=== PATIENT | male | born 1945 | race Caucasian/White ===

== ENCOUNTER → 2018-11-08 | Outpatient (CLI) | payer MEDICARE, BC ==
[~2018-11-08] MED LIST: ALPRAZOLAM 0.50.5 M1 PO; ANTIVERT25 MG PO; ARIXTRA SQ; ASPIRIN325 PO; ASPIRIN81 M2 PO; ATENOLOL 50MG T50 M1 PO; AZOR 5-20 MG T1 EACH PO; CIPRO500 MG PO; CIPROFLOXACIN500 M1 PO; CITRATE OF MAG296 ML PO; COLACE100 MG PO; CYCLOBENZAPRINE10 MG PO; DIPHENHYDRAMINE25 M3 PO; EAC PO; ECONOPRED PLUS10 M1 OP; FEVERALL650 MG RECTAL; FISH OIL 1,001000 M2 PO; FISHOIL PO; FLOMAX0.4 MG PO; FLONASE 0.05%50 MCG NASAL; GLUCOPHAGE500 MG PO; GLYBURIDE 3 MG M3 MG PO; HYDROCODON-ACE1 EAC2 PO; HYDROCODONE-AP1 EAC6 PO; IRON; LEVAQUIN 500 M500 M2 PO; LYRICA 75 MG CA75 MG PO; MAGNES PO; METAMUCIL283 GM PO; MIRALAX17 GM PO; MIRALAX255 GM PO; MOM; MOTION RELIEF25 MG PO; NORCO 5-325 TA1 EACH PO; OXYCONTIN10 M1 PO; OXYIR 5 MG CAPSU5 M1 PO; PERCOCET 10-321 EACH PO; PERCOCET 7.5-31 EACH PO; PROAIR HFA8.5 GM INH; PROPOXY-N/APAP1 TAB PO; REFRESH CLASSI1 EACH OP; STOOL SOFTENER240 MG PO; TYLENOL325 MG PO; VENTOLIN17 GM INH; ZOFRAN ODT4 MG PO; ZOFRAN4 MG PO
[2018-11-08 08:57] LABS: CALCIUM 8.5 mg/dL (8.5-10.1); CREATININE 0.8 mg/dL (0.6-1.3); POTASSIUM 3.9 mmol/L (3.5-5.1)
== END ==
LOC: M.LAB 08:00 → M.CT 09:30
PROVIDERS: Surgery Vascular Surgery
DX: I72.4 Aneurysm of artery of lower extremity (principal); I71.4 Abdominal aortic aneurysm, without rupture; I72.3 Aneurysm of iliac artery; N28.1 Cyst of kidney, acquired; K57.30 Diverticulosis of large intestine without perforation or abscess without bleeding; K40.90 Unilateral inguinal hernia, without obstruction or gangrene, not specified as recurrent; Z79.899 Other long term (current) drug therapy; Z96.653 Presence of artificial knee joint, bilateral

== ENCOUNTER 2019-06-13 21:41 | Inpatient (IN) | payer MEDICARE, BC ==
[~2019-06-13] VITALS: Ht 185.4 cm; Wt 79.4 kg
[2019-06-13 21:43] VITALS: BP 123/76
[2019-06-13] MEDS ORDERED: ATENOLOL 25 MG25 M1 PO (21:49)
[2019-06-13] MEDS ORDERED: BACLOFEN 10MG T10 MG PO (21:50)
[2019-06-13] MEDS ORDERED: DULOXETINE HCL40 MG PO (21:50)
[2019-06-13] MEDS ORDERED: ZESTRIL10 MG PO (21:51)
[2019-06-13] MEDS ORDERED: METFORMIN HCL500 MG PO (21:51)
[2019-06-13] MEDS ORDERED: NEURONTIN300 MG PO (21:51)
[2019-06-13] MEDS ORDERED: FLOMAX0.4 MG PO (21:52)
[2019-06-13] MEDS ORDERED: PERCOCET 5-3251 EACH PO (21:52)
[2019-06-13] MEDS ORDERED: PRAVASTATIN SOD10 MG PO (21:52)
[2019-06-13 22:16] LABS: ABSOLUTE LYMPHOCYTES 0.6 thou/uL (0.8-5.3); ABSOLUTE MONOCYTES 0.5 thou/uL (0.0-1.2); ABSOLUTE NEUTROPHILS 3.9 thou/uL (1.6-8.1); BASOPHILS 0.5 %; EOSINOPHILS 0.1 %; HEMATOCRIT 29.9 % (42.0-52.0); HEMOGLOBIN 9.9 gm/dL (14.0-18.0); LYMPHOCYTES 12.5 %; MCH 27.7 pg (26.0-34.0); MCV 84.2 fL (80.0-100.0); MONOCYTES 9.9 %; MPV 7.4 fl. (7.2-11.1); NUCLEATED RBCS 0 /100WBC; PLATELET COUNT* 273 thou/uL (150-400); RBC 3.56 mil/uL (4.50-6.00)
[2019-06-13 22:22] LABS: CALCIUM 8.2 mg/dL (8.5-10.1); CREATININE 1.1 mg/dL (0.6-1.3); POTASSIUM 4.3 mmol/L (3.5-5.1)
[2019-06-13 22:25] LABS: PROTIME 10.3 Seconds (9.20-11.50)
[2019-06-13 22:33] LABS: ALBUMIN 2.9 g/dL (3.4-5.0); TOTAL BILIRUBIN 0.4 mg/dL (<0.1-1.0); TOTAL PROTEIN 7.1 g/dL (6.4-8.2)
[2019-06-13 22:41] LABS: BE 2.9 mmol/L (-2 to +3); pH 7.377 (7.340-7.450)
[2019-06-13 22:43] LABS: PO2 164.4 mmHg (75.0-100.0)
--- NOTE | 2019-06-13 23:07 | NUR ---
ATTEMPTED TO STRAIGHT CATH FOR UA. UNABLE TO PASS BY PROSTATE. STATES THEY USUALLY HAVE TO HAVE THE DR WITH A SCOPE TO CATH. DR PENN NOTIFIED
[2019-06-14 01:55] LABS: URINE BILIRUBIN NEGATIVE (Negative); URINE BLOOD 1+ (Negative); URINE CLARITY CLEAR; URINE COLOR YELLOW; URINE GLUCOSE-RANDOM NEGATIVE (Negative); URINE KETONES NEGATIVE (Negative); URINE LEUKOCYTES-REFLEX NEGATIVE (Negative); URINE NITRITE-REFLEX NEGATIVE (Negative); URINE PROTEIN NEGATIVE (Negative); URINE SPECIFIC GRAVITY <= 1.005 (1.005-1.030)
[2019-06-14 02:13] LABS: SQUAMOUS 0-3 Few /LPF (0-3); URINE WBC-REFLEX 6-15 Few /HPF (0-5)
[2019-06-14 02:14] LABS: CASTS None Seen /LPF (None Seen); CRYSTALS None Seen /LPF (None Seen); MUCUS 0-3 Light strn/LPF (None Seen); URINE RBC 3-10 Few /HPF (0-2)
[2019-06-14 03:14] VITALS: BP 115/80
[2019-06-14 03:40] VITALS: BP 146/71
--- NOTE | 2019-06-14 06:48 | NUR ---
REPORT RECIEVED FROM ER. PT ADMITTED TO ROOM 222. PT ORIENTED TO ROOM, CALL LIGHT SHOWN, FALL AGREEMENT WENT OVER, PT STATED UNDERSTANDING. PTS HAD ALREADY GONE HOME, PT DOES NOT KNOW HOME MEDICATIONS, MED REC NOT COMPLETED. PULSE ON LLE FOUND WITH DOPPLER. WILL CONTINUE WITH PLAN OF CARE.
[2019-06-14 08:45] VITALS: BP 152/71
[2019-06-14 10:08] LABS: ABSOLUTE LYMPHOCYTES 0.7 thou/uL (0.8-5.3); ABSOLUTE MONOCYTES 0.4 thou/uL (0.0-1.2); ABSOLUTE NEUTROPHILS 2.9 thou/uL (1.6-8.1); BASOPHILS 0.7 %; EOSINOPHILS 0.2 %; HEMATOCRIT 29.6 % (42.0-52.0); HEMOGLOBIN 9.6 gm/dL (14.0-18.0); LYMPHOCYTES 17.5 %; MCH 27.2 pg (26.0-34.0); MCHC 32.4 g/dL (28.0-37.0); MCV 84.1 fL (80.0-100.0); MONOCYTES 11.1 %; MPV 7.2 fl. (7.2-11.1); NUCLEATED RBCS 0 /100WBC; PLATELET COUNT* 231 thou/uL (150-400); POLYS 70.5 %; RBC 3.52 mil/uL (4.50-6.00); RDW-CV 19.7 % (10.5-14.5)
[2019-06-14 10:13] LABS: APTT 25.2 Seconds (25.0-31.3); PROTIME 10.5 Seconds (9.20-11.50)
--- NOTE | 2019-06-14 10:16 | EKG ---
[place] [address] ELECTROCARDIOGRAM REPORT Name: APURVA PINEDA Room: [address] ADM IN M.R.#: [id number] Admission: 06/14/19 Attend Phys: Marcio Story MD Discharge: Date of : 43 Report #: [id number] THIS REPORT FOR: //name// [facility] ED Test Date: 2019-06-13 Test Time: 21:44:40 Pat Name: APURVA PINEDA Department: Room: [facility] Gender: M Test Rider: AJ : 1945 Requested By: Jacinta Murdock Order Number: [id number] MD: You Humphrey Measurements Intervals [place] Rate: 57 P: -16 RI: 164 QRS: -10 QRSD: 141 T: -11 QT: 538 QTc: 524 Interpretive Statements Sinus rhythm Atrial premature complexes Right bundle branch block Compared to ECG 06/20/2016 08:41:38 Atrial premature complex(es) now present Electronically Signed On 06-14-2019 10:16:04 SR RISK MANAGEMENT CONSULTANT by You Humphrey [email or web address] <ELECTRONICALLY SIGNED> By: You Humphrey MD, FACC 06/14/19 1016 2144 2144 You Humphrey MD, [facility] /EPI
[2019-06-14 12:15] VITALS: BP 159/73
[2019-06-14 16:00] VITALS: BP 153/92
[2019-06-14 20:20] VITALS: BP 154/69
[2019-06-15] VITALS: BP 162/91
[2019-06-15 04:00] VITALS: BP 168/89
[2019-06-15 04:40] LABS: HEMATOCRIT 30.8 % (42.0-52.0); HEMOGLOBIN 9.6 gm/dL (14.0-18.0); MCH 26.5 pg (26.0-34.0); MCHC 31.2 g/dL (28.0-37.0); MCV 84.7 fL (80.0-100.0); MPV 7.5 fl. (7.2-11.1); RBC 3.63 mil/uL (4.50-6.00); RDW-CV 20.2 % (10.5-14.5); WBC 4.7 thou/uL (4.0-11.0)
[2019-06-15 04:50] LABS: CALCIUM 7.8 mg/dL (8.5-10.1); CREATININE 0.8 mg/dL (0.6-1.3); POTASSIUM 3.5 mmol/L (3.5-5.1)
--- NOTE | 2019-06-15 07:06 | NUR ---
VSS. SEE MAR. SEE CHARTING. PROGRESSING TOWARDS GOALS. FALL PRECAUITONS IN PLACE. HOURLY ROUNDING FOR SAFETY.
[2019-06-15 08:00] VITALS: BP 167/84
[2019-06-15 12:21] VITALS: BP 140/63
[2019-06-15 16:12] VITALS: BP 152/79
--- NOTE | 2019-06-15 19:43 | NUR ---
ASSUSSMED CARE OF PT APPROX 0730. REASSEMENT COMPLETED CHARTED. MEDICATIONS GIVEN CHARTED. PTS HEPARIN WAS INFUSING AT A HIGHER LEVEL THAN CALCULATED AT THE BEGING OF MY SHIFT APROX 0730. HEPARIN INFUSION WAS STOPED. APTT WAS REDRAWN, RESULTS OF APTT WERE DISCUSSED WITH THE PROVIDER, NEW ORDERS FOR ANTICOAGULATION WERE PLACED FOR THE PT. PT HAD EPISODES OF INCONTIENTNCE, SANDRA CARE GIVEN AND BED PAD CHANGED. SAFTEY PRECAUTIONS UTILIZED, HOURLY ROUNDED FOR PT SAFTEY.
[2019-06-15 20:00] VITALS: BP 156/87
[2019-06-16 00:39] VITALS: BP 146/75
[2019-06-16 04:28] VITALS: BP 167/72
[2019-06-16 04:39] LABS: HEMATOCRIT 29.7 % (42.0-52.0); HEMOGLOBIN 9.5 gm/dL (14.0-18.0); MCH 26.8 pg (26.0-34.0); MCHC 32.1 g/dL (28.0-37.0); MCV 83.7 fL (80.0-100.0); MPV 7.8 fl. (7.2-11.1); RBC 3.54 mil/uL (4.50-6.00); RDW-CV 19.9 % (10.5-14.5); WBC 5.6 thou/uL (4.0-11.0)
[2019-06-16 05:13] LABS: CALCIUM 8.1 mg/dL (8.5-10.1); CREATININE 0.8 mg/dL (0.6-1.3); POTASSIUM 3.3 mmol/L (3.5-5.1)
[2019-06-16 08:00] VITALS: BP 164/85
--- NOTE | 2019-06-16 08:30 | NUR ---
PT SETTING OFF BED ALARM AT BEGINING OF SHIFT. PT TRANSFERED TO ROOM CLOSER TO NURSES STATION. PT STATED HE WAS ANXIOUS AND CONFUSED. XANEX GIVEN PER E-MAR. PT BECOME MORE CONFUSED AND RESTLESS, STATING THAT THE "WORLD IS ENDING IN 48 HOURS" AND THEN WAS SEEING A DOG IN HIS ROOM. PT REPEATEDLY PULLING OFF TELE MONITOR, PT PULLED OUT IV, NEW IV STARTED. NOTIFIED, ORDER FOR SITTER RECIEVED. ASSESSMENT DOCUMENTED. PT AWAKE ALL NIGHT. FALL PRECAUTIONS IN PLACE. WILL CONTINUE WITH PLAN OF CARE.
[2019-06-16 14:03] LABS: CALCIUM 7.9 mg/dL (8.5-10.1); CREATININE 0.9 mg/dL (0.6-1.3); POTASSIUM 3.6 mmol/L (3.5-5.1)
[2019-06-16 14:27] VITALS: BP 156/78
[2019-06-16 17:30] VITALS: BP 165/84
--- NOTE | 2019-06-16 19:01 | NUR ---
RECEIVED REPORT. ASSUMED CARE OF PT AROUND 0730. PT ALERT AND AWAKE, BUT LIKES TO KEEP EYES CLOSED A LOT. OPENS EYES WHEN ASKED. PT ORIENTED TO PERSON AND MONTH/YEAR. DISORIENTED TO PLACE AND SITUATION. WHEN COMMUNICATING WITH PT IT BECOMES CLEAR THAT PT IS VERY CONFUSED - PT WITH HALLUCINATIONS, SEEING DOG ON THE FLOOR AND REACHING OUT TO THE CEILING ASKING "ARE YOU MY AMANDA COMING?". PT WITH EPISODES OF WORD SALAD, CONVERSATION WITH PT IS DIFFICULT. PT DOWN FOR CT HEAD THIS SHIFT, SEE RESULTS. NIH 2. VSS, EXCEPT LOW GRADE TEMP. FITNESS CONSULTANT IN PLACE TRACING SR WITH PAC'S THIS SHIFT. AM ASSESSMENT AND VITALS COMPLETED CHARTED. PT HAS DENIED PAIN THIS SHIFT AND HAD NOT APPEARED TO BE IN ANY DISCOMFORT. SITTER MAINTAINED. IN FOR A TIME THIS AFTERNOON. PT INCONTINENT OF B&B MULTIPLE TIMES - PT CLEANED, BARRIER OINTMENT APPLIED AND LINENS CHANGED NEEDED. MEDS PER EMAR. POTASSIUM REPLACED. PT LUNGS COARSE AND WHEEZY THROUGHOUT, PERSISTENT COUGH. PRN BREATHING TREATMENTS ADDED. PT WITH POOR APPETITE. PT CURRENTLY RESTING IN BED. CALL LIGHT IS WITHIN REACH. HOURLY ROUNDING PERFORMED. FALL PRECAUTIONS IN PLACE.
[2019-06-17] VITALS: BP 121/86
[2019-06-17 04:00] VITALS: BP 137/74
--- NOTE | 2019-06-17 05:31 | NUR ---
PT AWAKE MOST OF SHIFT, TALKING TO THINGS IN THE AIR, PT GRABBING AT THE AIR. SITTER REMAINED AT BESIDE. ASSESSMENT DOCUMENTED. PT REFUSED ALL PO MEDS SO FAR THIS SHIFT, STATING "I AM NEVER TAKING MEDS AGAIN FOR THE REST OF MY LIFE" PT THEN STATED HE WOULD TAKE PILLS, PUT PILLS IN MOUTH THEN SPIT THEM BACK OUT. PT INCONTINENT OF BLADDER THIS SHIFT. FALL PRECAUTIONS IN PLACE. WILL CONTINUE WITH PLAN OF CARE.
--- NOTE | 2019-06-17 06:57 | NUR ---
WENT TO GIVE PATIENT HIS MEDS THIS AM, PT ANSWERING APPROPRIATELY, ORIENTED TO PLACE AND SITUATION. PT AGREEABLE TO TAKE MEDS THEN WENT TO SLEEP. WILL CONTINUE WITH PLAN OF CARE.
[2019-06-17 08:00] VITALS: BP 160/73
--- NOTE | 2019-06-17 09:37 | NUR ---
Pt is A&O. Resides at home with . Pt is wc bound, uses a slide board to transfer, available to assist as needed. Pt also has a cane and walker. Independent. to be up later this afternoon. Following.
[2019-06-17 11:30] VITALS: BP 165/73
[2019-06-17 12:05] LABS: HEMATOCRIT 30.7 % (42.0-52.0); MCH 27.2 pg (26.0-34.0); MCHC 32.7 g/dL (28.0-37.0); MCV 83.2 fL (80.0-100.0); MPV 7.3 fl. (7.2-11.1); RBC 3.69 mil/uL (4.50-6.00); RDW-CV 19.4 % (10.5-14.5); WBC 6.1 thou/uL (4.0-11.0)
[2019-06-17 12:18] LABS: CALCIUM 8.4 mg/dL (8.5-10.1); CREATININE 0.8 mg/dL (0.6-1.3); POTASSIUM 3.9 mmol/L (3.5-5.1)
[2019-06-17 16:24] VITALS: BP 158/74
--- NOTE | 2019-06-17 18:19 | NUR ---
ASSUSSMED CARE OF PT APPROX 0730. REASSESSMENT COMPLETED CHARTED. MEDICATIONS GIVEN CHARTED. AT THE BEGINING OF THIS SHIFT THE PT WAS NONVERBAL AND WOULD NOT OPEN EYES WHEN ASKED TO, PT HAD OCCASIONAL MUMBLES. PTS FAMILY WAS AT BEDSIDE THIS MORNING. AT APPROX 1130 PT WAS ALERT AND ANSWERING QUESTIONS, SOMETIMES NOT APPROPRIATLEY. PT WAS NOT AWARE OF WHERE HE WAS, BUT WAS ABLE TO TELL ME WHO HE WAS AND WHAT YEAR IT IS. PT HAS BEEN AWAKE AND ALERT FOR THE REST OF THIS SHIFT. THE PT WILL LOOK FOR THINGS THAT ARE NOT THERE AND TALK ABOUT THINGS THAT DONT MAKE SENSE. HE IS PLESANT AND IN A GOOD MOOD AND WILL LAUGH AT TIMES. PT HAD A SITTER THIS MORNING THAT WAS NO LONGER NEEDED THIS AFTERNOON. PT IS INCONTINENT OF BOWEL AND BLADDER, SANDRA CARE GIVEN NEEDED. SAFTEY PRECAUTIONS UTILIZED, HOURLY ROUNDING FOR NEEDS AND SAFTEY.
[2019-06-17 19:45] VITALS: BP 148/71
[2019-06-18] VITALS: BP 141/91
[2019-06-18 04:00] VITALS: BP 129/104
--- NOTE | 2019-06-18 07:01 | NUR ---
PT AWAKE MOST OF SHIFT. ASSESSMENT DOCUMENTED. MEDS GIVEN PER E-SEP. IV PATENT, FLUIDS INFUISNG. NO REPORTS OF PAIN. PT DISORIENTED X4 MOST OF SHIFT. SITTER REMAINED AT BEDSIDE. AT MORNING MED PASS THIS AM, PT A&OX4 AND ABLE TO HOLD A CONVERSATION. WILL CONTINUE WITH PLAN OF CARE.
[2019-06-18 08:53] VITALS: BP 153/75
[2019-06-18 11:34] VITALS: BP 139/56
[2019-06-18 16:49] VITALS: BP 143/66
[2019-06-18 20:00] VITALS: BP 134/66
[2019-06-19] VITALS: BP 121/61
--- NOTE | 2019-06-19 04:37 | NUR ---
Pt is aox2, is not currently being monitored on telemetry, respirations are labored, but even. Pt is not in acute distress at this time. Will continue to monitor.
[2019-06-19 07:15] VITALS: BP 171/91
--- NOTE | 2019-06-19 08:00 | NUR ---
PT FOUND IN ROOM TO BE DROWSY,DIAPHORECTIC, AND NOT ABLE TO VERBALLY RESPOND.PT IS ABLE TO FOLLOW COMMANDS AND NIH COMPLETED.RAT CALL CALLED @ 0800.DR. ROGEL PAGED OVERHEAD.PT TAKEN TO STAT CT.CODE STROKE PROTOCOL FOLLOWED.CXR COMPLETED.EKG COMPLETED.PT LEFT RESTING IN BED WITH CALL LIGHT AND FALL PRECAUTIONS IN PLACE.WILL CONTINUE TO MONITOR.
[2019-06-19 09:06] LABS: HEMATOCRIT 28.8 % (42.0-52.0); HEMOGLOBIN 9.4 gm/dL (14.0-18.0); MCH 27.4 pg (26.0-34.0); MCHC 32.7 g/dL (28.0-37.0); MCV 83.9 fL (80.0-100.0); MPV 7.7 fl. (7.2-11.1); RBC 3.44 mil/uL (4.50-6.00); RDW-CV 19.1 % (10.5-14.5); WBC 4.9 thou/uL (4.0-11.0)
[2019-06-19 09:18] LABS: CALCIUM 8.5 mg/dL (8.5-10.1); CREATININE 0.7 mg/dL (0.6-1.3); POTASSIUM 3.5 mmol/L (3.5-5.1)
[2019-06-19 09:22] LABS: ALBUMIN 2.6 g/dL (3.4-5.0); TOTAL BILIRUBIN 0.8 mg/dL (<0.1-1.0); TOTAL PROTEIN 6.9 g/dL (6.4-8.2)
[2019-06-19 12:00] VITALS: BP 144/74
--- NOTE | 2019-06-19 16:31 | NUR ---
PT IS MORE AWAKE THIS AFTERNOON AND RESPONDING TO NURSE.SHREDDER OPERATOR IN PLACE.PT REMAINS ON 2L O2 NC.NO C/O PAIN.IV PATENT WITH IVF INFUSING PER ORDERS.SPEECH THERAPY SAW PT.HOURLY ROUNDING COMPLETED FOR PT SAFETY.CALL LIGHT AND FALL PRECAUTIONS IN PLACE.WILL CONTINUE TO MONITOR FOR DURATION OF SHIFT.
--- NOTE | 2019-06-19 16:59 | EKG ---
[place] [address] ELECTROCARDIOGRAM REPORT Name: APURVA PINEDA RAMIREZ Room: [address] ADM IN M.R.#: [id number] Admission: 06/14/19 Attend Phys: Marcio Story MD Discharge: Date of : 43 Report #: [id number] THIS REPORT FOR: //name// [facility] Test Date: 2019-06-19 Test Time: 08:38:59 Pat Name: APURVA PINEDA Department: Room: [address] Gender: M Paper Twister: : 1945 Requested By: Baldev Haskins Order Number: [id number] Jonathan MD: Helder Borwn Measurements Intervals [place] Rate: 77 P: -47 [place]: 153 QRS: -19 QRSD: 146 T: -28 QT: 441 QTc: 500 Interpretive Statements Sinus rhythm Premature atrial complexes Right bundle branch block Compared to ECG 06/13/2019 21:44:40 significant changes not noted Electronically Signed On 06-19-2019 16:59:07 DIVIDING MACHINE OPERATOR by Helder Brown [email or web address] <ELECTRONICALLY SIGNED> By: Helder Brown MD, [facility] 06/19/19 1659 7 Helder Brown MD, [facility] /EPI
[2019-06-19 20:00] VITALS: BP 134/76
[2019-06-20] VITALS: BP 163/70
[2019-06-20 04:00] VITALS: BP 166/80
--- NOTE | 2019-06-20 06:44 | NUR ---
Pt is aox3, running SA with PVCs on telemetry, respirations are labored, but even. Pt is not in acute distress at this time. Will continue to monitor.
[2019-06-20 08:00] VITALS: BP 156/76
[2019-06-20 11:49] VITALS: BP 132/70
--- NOTE | 2019-06-20 12:34 | NUR ---
Rehab consulted. Pt medically stable to dc to acute rehab pending acceptance. Per rehab Dr, Pt is a good candidate, awaiting therapy evals.
--- NOTE | 2019-06-20 13:58 | NUR ---
Pt discharging to [facility] acute rehab today, awaiting room assignment. Updated Pt's , she is in agreement with POC.
[2019-06-20 16:44] VITALS: BP 132/70
--- NOTE | 2019-06-21 13:36 | CON ---
[address] [address] CONSULTATION Name: APURVA PINEDA Room: [address] IN M.R.#: [id number] Admission: 06/14/19 Attend Phys: Marcio Story MD Discharge: 06/20/19 Date of : 43 Report #: [id number] THIS REPORT FOR: //name// CC: Adair Story HISTORY OF PRESENT ILLNESS: This is a 74-year-old male patient who was seen by me for confusion. History is somewhat vague and came after talking to the patient's and the family multiple times. It would appear that the patient had some confusion when he was at home. According to the family, the patient had some confusion when he was admitted at [facility] for aortic stent. He also had generalized weakness and he was found to have pulmonary embolus. He is being treated for that. He also has a history that he had a "blood clot" in his right leg, which was amputated and the left and he subsequently had aortic stent put in. So, looks like he had a pretty significant vascular disease and he has recent pulmonary embolus. When I asked the family about his memory in general, they do not give any specific answer. They say the memory is falling. It is mostly for the short-term memory. He had some confusion in the past, but he has never been "that bad." He does have a history of kidney stones, urinary tract infections, benign prostatic hypertrophy. He is on multiple medications including Xanax. He was not taking Xanax for a week or so. He does drink alcohol, at first said 1 drink, then she says that sometimes he drinks more than that. He had multiple vascular surgeries. He had a cataract surgery, hypertension, and Staph infections in the past. He had back surgeries in the past. This was his relevant 14-point review of systems. PAST MEDICAL HISTORY: Positive for multiple vascular issues. FAMILY HISTORY: Negative for early age stroke. SOCIAL HISTORY: He drinks at least 1 alcoholic drink a day. PHYSICAL EXAMINATION: Indicate that when prompted he can tell me what month it is, but he did not know what hospital he is in. He was hallucinating, but he was able to follow commands intermittently. His speech looks intact. His cranial nerve examination does not appear [place] [address] CONSULTATION Name: APURVA PINEDA Room: [address]#: [id number] Admission: 06/14/19 Attend Phys: Marcio Story MD Discharge: 06/20/19 Date of : 43 Report #: [id number] abnormality. He is weak all over the body, but his position sense is intact. His tone looks symmetrical. Blood pressure is 164/85, pulse is 67, and temperature is 98.5. LABORATORY DATA: Indicate that he is anemic with a hemoglobin of 9.5. His cholesterol is high at 202 and triglyceride is pretty high at 570. CT scan of the head was done on admission and that did not show any abnormality and is being repeated now. IMPRESSION: It would appear that the patient's memory is impaired in the baseline. It looks like he got confusion when he was in [facility] and he got confusion when he had this pulmonary embolus. That would indicate that he is barely compensated for the memory in the baseline and gets decompensated pretty fast. He also may have some Xanax withdrawal and he drinks at least one alcoholic drink a day and sometimes more and he may be having some withdrawal from there, although it does not look like he drinks pretty heavily. RECOMMENDATIONS: 1. TSH, vitamin B12. 2. We will get an EEG. 3. We will give him thiamine to be on safe side. 4. A review of the CT scan. 5. I do not think there is any indication to do anything further like spinal tap, but we will get his records from the other hospitals and review those. Time spent about 50 minutes and majority of counseling first for the patient's and subsequently the patient himself and the family. <ELECTRONICALLY SIGNED> By: Perico Silva MD 06/21/19 1336 1343 1952Paleshia Silva MD /nt
--- NOTE | 2019-06-21 13:36 | EEG ---
[address] [address] EEG STUDY REPORT Name: APURVA PINEDA Room: [address] IN M.R.#: [id number] Admission: 06/14/19 Attend Phys: Marcio Story MD Discharge: 06/20/19 Date of : 43 Report #: [id number] THIS REPORT FOR: //name// CC: Adair Story DATE OF SERVICE: 06/14/2019 This patient is being evaluated for confusion. EEG was done by placing the electrode by standard 10-20 system of electrode placement. Both referential and sequential montages were used for recording. Background activity in this patient is difficult to determine because the patient had a lot of muscle artifact. It appeared to be about 8-9 Hz and 30 microvolts. It is intermixed with theta range slowing on both sides. Photic stimulation is unremarkable. No active epileptiform activity was noticed. IMPRESSION: A lot of muscle artifact is present and EEG is difficult to interpret. It does not appear to be showing any active epileptiform activity. Thank you very much for this referral. <ELECTRONICALLY SIGNED> By: Perico Silva MD 06/21/19 1336 1620 [id number] Silva MD /nt
== END 2019-06-20 18:40 | DRG 177 ==
LOC: M.ERS 21:41 → M.TBA-ER 06-14 02:26 → M.2W 06-14 02:26 → M.ERS 06-14 03:14 → M.2W 06-14 03:27
PROVIDERS: Emergency Medicine; Internal Medicine; Nurse Practitioner Family; ADMIT Internal Medicine
DX: J15.6 Pneumonia due to other Gram-negative bacteria (principal); G93.41 Metabolic encephalopathy; J98.11 Atelectasis; N39.0 Urinary tract infection, site not specified; K57.92 Diverticulitis of intestine, part unspecified, without perforation or abscess without bleeding; I11.9 Hypertensive heart disease without heart failure; N40.0 Benign prostatic hyperplasia without lower urinary tract symptoms; D64.9 Anemia, unspecified; N21.0 Calculus in bladder; E11.42 Type 2 diabetes mellitus with diabetic polyneuropathy; E78.5 Hyperlipidemia, unspecified; F03.90 Unspecified dementia, unspecified severity, without behavioral disturbance, psychotic disturbance, mood disturbance, and anxiety; F41.9 Anxiety disorder, unspecified; J45.909 Unspecified asthma, uncomplicated; Z96.659 Presence of unspecified artificial knee joint; I25.10 Atherosclerotic heart disease of native coronary artery without angina pectoris; I45.10 Unspecified right bundle-branch block; Z88.1 Allergy status to other antibiotic agents; Z79.899 Other long term (current) drug therapy; Z79.84 Long term (current) use of oral hypoglycemic drugs; Z90.89 Acquired absence of other organs; Z98.41 Cataract extraction status, right eye; Z87.442 Personal history of urinary calculi; Z89.611 Acquired absence of right leg above knee; Z82.49 Family history of ischemic heart disease and other diseases of the circulatory system; Z86.718 Personal history of other venous thrombosis and embolism; Z81.8 Family history of other mental and behavioral disorders

== ENCOUNTER 2019-06-20 14:52 | Inpatient (IN) | payer MEDICARE, BC ==
[~2019-06-20] VITALS: Ht 182.9 cm; Wt 79.8 kg
[~2019-06-20 14:52] MED LIST changes: +ATENOLOL 25 MG25 M1 PO; +BACLOFEN 10MG T10 MG PO; +DULOXETINE HCL40 MG PO; +METFORMIN HCL500 MG PO; +NEURONTIN300 MG PO; +PERCOCET 5-3251 EACH PO; +PRAVASTATIN SOD10 MG PO; +ZESTRIL10 MG PO
[2019-06-20 19:02] VITALS: BP 125/73
--- NOTE | 2019-06-21 03:04 | NUR ---
ASSUMED CARE @ 1929-.APPEARS SLEEPING IN BED W/ HOB UP.BED ALARM PUT ON @ 1929.URINAL W/IN REACH.ADMITTED A 74 YEAR OLD W/ ENCEPHALOPTHY & PNEUMONIA.ARRIVED IN REHAB @ 1843.TELEMETRY WIRES REMOVED @ 2024.YUHAAVIATAM JUAN JOSE.DOES NOT WEAR HEARING AIDS.WEARS PULL UPS.SEE PAIN MANAGEMENT @ 2032.RIGHT WRIST-W/ EDEMA.DRY SCAB LEFT ZEE-PICTURE TAKEN @ 225.OLD RIGHT AKA.SALINE LOCK LEFT FOREARM LEAKING WHEN FLUSHED @ 2306 & REMOVED.ON HOURLY ROUNDS.
--- NOTE | 2019-06-21 05:33 | NUR ---
SLEEPING SINCE 193 & 1999 & from 0000-06/21-MONDAY TO 0510-WHEN AWAKEND BY LAB FOR BLOOD DRAW.VOIDED FIRST TIME PER URINAL @ 0510-200 ML.BLADDER SCAN-401 ML.WILL TRY TO EMPTY BLADDER AGAIN 2ND TIME.TOOK ALL VANILLA ICE CREAM HS SNACK.
[2019-06-21 05:36] LABS: HEMATOCRIT 28.5 % (42.0-52.0); HEMOGLOBIN 9.1 gm/dL (14.0-18.0); MCH 27.2 pg (26.0-34.0); MCHC 32.1 g/dL (28.0-37.0); MCV 84.8 fL (80.0-100.0); MPV 8.2 fl. (7.2-11.1); RBC 3.36 mil/uL (4.50-6.00); RDW-CV 18.8 % (10.5-14.5); WBC 4.7 thou/uL (4.0-11.0)
[2019-06-21 05:47] LABS: CALCIUM 8.7 mg/dL (8.5-10.1); CREATININE 0.6 mg/dL (0.6-1.3); POTASSIUM 3.4 mmol/L (3.5-5.1)
[2019-06-21 08:10] VITALS: BP 135/76
--- NOTE | 2019-06-21 09:05 | NUR ---
Nutrition: Consult for new rehab admit. Admitted with encephalopathy. H/o DMII, HTN, dementia, PN. CHO controlled diet, eating well. Alb 2.6, prealb 14.7, BG 132. On metformin. Wt: 176#. No nutrition interventions needed at this time. Will follow weekly. Low risk.
--- NOTE | 2019-06-21 13:22 | NUR ---
SW met with pt to complete initial assessment on inpt rehab unit. Pt alert, oriented. Pt lives at home with who can assist as needed. Pt has wc, slideboard, cane, RW. SW to continue to follow to assist with safe dc planning.
--- NOTE | 2019-06-21 18:23 | NUR ---
AM ASSESSMENT AND VITAL SIGNS COMPLETED DOCUMENTED. PT WORKED WITH ALL THERAPIES TODAY, HIS ONLY COMPLAINT WAS OF BEING VERY TIRED BY THIS AFTERNOON. PT IS ABLE TO SQUAT PIVOT FOR TRANSFERS WITH MIN TO MOD ASSIST. PT HAS BEEN CONTINENT OF URINE OTHER THAN ONE EPISODE OF STRESS INCONTINENCE WHEN HE SNEEZED. PT HAS REFUSED ACCU CHECKS, STATING HE ISN'T DIABETIC. FALL PRECAUTIONS AND HOURLY ROUNDING CONTINUE.
[2019-06-21 20:40] VITALS: BP 141/76
--- NOTE | 2019-06-21 20:45 | NUR ---
AWAKENED FOR HS REASSESSMENT AND MEDICATION PASS. PATIENT THOUGHT IT WAS MORNING BUT AFTER BECAME MORE AWAKE AND WAS REORIENTED BECAME AWARE IT WAS NIGHT TIME. INCONTINENT OF URINE. SANDRA CARE GIVEN. TOOK MEDICATIONS WHOLE WITH WATER. SNACK PROVIDED. CALL LIGHT WITHIN REACH.
[2019-06-22] VITALS (7 sets, daily range): BP systolic 96–133; BP diastolic 48–69
--- NOTE | 2019-06-22 05:48 | NUR ---
RESTED QUIETLY EXCEPT FOR INTERMITTENT COUGHING. PATIENT STATES HE AND HIS HAVE BEEN PASSING SOMETHING BACK AND FORTH FOR PAST SIX WEEKS. USED URINAL X ONE DURING THE NIGHT. PAIN MEDICATION GIVEN FOR COMPLAINT OF RIGHT WRIST PAIN WITH RELIEF. HOURLY ROUNDING IN PROGRESS.
--- NOTE | 2019-06-22 17:05 | NUR ---
ALERT AND ORIENTED X4. UP WITH 1 ASSIST AND GAIT BELT FOR PIVOT TRANSFERS TO W/C OR BED. C/O RIGHT THUMB PAIN. BASE OF RIGHT THUMB PINK AND SWOLLEN. PAIN MEDICATION GIVEN WITH LITTLE RELIEF. DR NOTIFIED AND CT ORDERED. INCONTINENT OF URINE X1 TODAY. INCISIONS IN GROIN HEALING WELL. PATIENT HAS RIGHT AKA. REFUSED LAXATIVE WHEN OFFERED. THIS AM WHILE IN SHOWER WITH THERAPY PATIENT BECAME VERY PALE AND SLOW TO RESPOND. WOULD NOT OPEN EYES. B/P CHECKED 90/58. PATIENT TAKEN OUT OF SHOWER AND PUT TO BED. AFTER GETTING BACK IN BED PATIENT HE STARTED RESPONDING. ORTHOSTATIC B/P DONE CHARTED. PATIENT ENCOURAGED TO DRINK FLUIDS. ORTHOSTATIC B/P RECHECKED THIS AFTERNOON. DR NOTIFIED AND NO NEW ORDERS. CHAIR AND BED ALARM USED. CALL LIGHT WITHIN REACH.
--- NOTE | 2019-06-22 20:00 | NUR ---
RESTING QUIETLY IN BED. PAIN MEDICATION GIVEN FOR COMPLAINT OF PAIN IN RIGHT HAND. INCONTINENT OF URINE. SANDRA CARE GIVEN. CALL LIGHT WITHIN REACH.
[2019-06-23 04:31] LABS: HEMATOCRIT 26.2 % (42.0-52.0); HEMOGLOBIN 8.4 gm/dL (14.0-18.0); MCH 27.2 pg (26.0-34.0); MCV 84.9 fL (80.0-100.0); MPV 8.3 fl. (7.2-11.1); RBC 3.09 mil/uL (4.50-6.00); RDW-CV 18.6 % (10.5-14.5); WBC 4.7 thou/uL (4.0-11.0)
[2019-06-23 04:49] LABS: CALCIUM 8.5 mg/dL (8.5-10.1); CREATININE 0.7 mg/dL (0.6-1.3); POTASSIUM 3.2 mmol/L (3.5-5.1)
--- NOTE | 2019-06-23 06:34 | NUR ---
SLEPT SOUNDLY ALL NIGHT. NO VOID SINCE WAS INCONTINENT AT BEDTIME. BLADDER SCAN SHOWS 719ML. ENCOURAGED PATIENT TO TRY TO VOID. PATIENT SITTING UP TRYING TO VOID PER URINAL. WILL CONTINUE TO MONITOR. NO FURTHER COMPLAINT OF RIGHT HAND PAIN. HOURLY ROUNDING IN PROGRESS.
[2019-06-23 07:42] VITALS: BP 120/81
--- NOTE | 2019-06-23 18:30 | NUR ---
ALERT WITH PERIODS OF FORGETFULNESS AND CONFUSION. USES 1 ASSIST AND GAIT BELT TO SLIDE TO AND FROM BED AND W/C. VOIDED 400ML IN URINAL AND THEN WAS BLADDER SCANNED WHICH SHOWED 270ML STILL IN BLADDER. UNABLE TO STRAIGHT CATH. NURSING MONITORING TECH UNABLE TO STRAIGHT CATH. PATIENT. DR NOTIFIED AND UROLOGY CONSULTED. UROLOGY HERE AND FAN CATHETER PLACED. URINE CLEAR GINA IN COLOR. DR HERE AND NOTIFIED OF RIGHT THUMB PAIN. NEW ORDER NOTED. CALL LIGHT WITHIN REACH. BED ALARM AND CHAIR ALARM USED.
[2019-06-23 19:30] VITALS: BP 120/61
--- NOTE | 2019-06-24 01:57 | NUR ---
ASSUMED CARE @ 1944-06/23-MONDAY.AWAKE IN BED W/ HOB UP.LEFT LE ALREADY UP ON A PILLOW @ THIS TIME.BED ALARM ON ALREADY @ 1944.FAN CATHETER IN PLACE & PATENT.ONEYDA BM-121/2.DULCOLAX SUP OFFERED & GIVEN @ 2117 W/ DIG.STIM. INSTRUCTED TO STAY ON HIS SIDE.WEARS PULL UPS.2 PERSON ASSIST TO BSC W/ PIVOT TRANSFER @ 2154.HAD HUGE BM.SANDRA CARE DONE IN BED.NWB RIGHT LE OBSERVED DURING TRANSFER.RIGHT HAND ELEVATED ON A PILLOW DUE TO EDEMA.TEMP @ 1930-99.1 ORAL. MN-57/MIN.TEMP & [id number] @ 2223.TEMP-98.6 ORAL.MN-59-IRREG.ON HOURLY ROUNDS.FILE DRAWER FINISHER DOING ODD HOUR ROUNDS.
--- NOTE | 2019-06-24 05:17 | NUR ---
SLEEPING SINCE 2300 & SLEPT GOOD ALL NIGHT.USED BSC X1 FOR BM.TOOK ALL VANILLA ICE CREAM HS SNACKS.
[2019-06-24 06:14] LABS: URINE BLOOD 3+ (Negative); URINE CLARITY CLEAR; URINE COLOR YELLOW; URINE GLUCOSE-RANDOM NEGATIVE (Negative); URINE KETONES NEGATIVE (Negative); URINE LEUKOCYTES-REFLEX TRACE (Negative); URINE NITRITE-REFLEX NEGATIVE (Negative); URINE PROTEIN 1+ (Negative); URINE SPECIFIC GRAVITY >= 1.030 (1.005-1.030)
[2019-06-24 06:17] LABS: ICTOTEST (BILI CONFIRMATORY) Negative (Negative); URINE BILIRUBIN 1+ (Negative)
[2019-06-24 06:22] LABS: BACTERIA-REFLEX 1-9 Few /HPF (None Seen); CASTS None Seen /LPF (None Seen); CRYSTALS None Seen /LPF (None Seen); MUCUS 4-6 Moderate strn/LPF (None Seen); SQUAMOUS 4-10 Moderate /LPF (0-3); URINE RBC >20 Many /HPF (0-2); URINE WBC-REFLEX 0-5 Rare /HPF (0-5)
[2019-06-24 07:54] VITALS: BP 122/62
--- NOTE | 2019-06-24 15:33 | EKG ---
[place] [address] ELECTROCARDIOGRAM REPORT Name: APURVA PINEDA Room: [address] ADM IN M.R.#: [id number] Admission: 06/20/19 Attend Phys: Calos Leigh MD Discharge: Date of : 43 Report #: [id number] THIS REPORT FOR: //name// [facility] Test Date: 2019-06-24 Test Time: 14:31:12 Pat Name: APURVA PINEDA Department: Room: [address] Gender: M Manager Track: : 1945 Requested By: Heydi Storm Order Number: [id number] Jonathan MD: You Humphrey Measurements Intervals [place] Rate: 48 P: 9 OR: 163 QRS: -36 QRSD: 101 T: 63 QT: 445 QTc: 398 Interpretive Statements Sinus bradycardia Atrial premature complexes Left axis deviation Borderline T wave abnormalities Compared to ECG 06/19/2019 08:38:59 Left-axis deviation now present T-wave abnormality now present Right bundle-branch block no longer present Electronically Signed On 06-24-2019 15:32:43 BENEFIT AUTHORIZER by You Humphrey [email or web address] <ELECTRONICALLY SIGNED> By: You Humphrey MD, FAC 06/24/19 1532 1431 1431 You Humphrey MD, [facility] /EPI
--- NOTE | 2019-06-24 16:34 | NUR ---
PATIENT UP TO CHAIR AND WHEELCHAIR TODAY. WORKED WITH THERAPYS ORDERED. PRN OXYCODONE GIVEN X [address] JOSHI NOTIFIED OF IRREGULAR HR PER HUSKER OPERATOR TELEPHONE CLAIMS REPRESENTATIVE AND AUSCULTATED BRIEFLY THIS AM BY THIS NURSE. EKG ORDERED AND DR. JOSHI NOTIFIED OF RESULTS. SCHED DAILY ATENOLOL DC'D FOR BRADYCARDIA. POTASSIUM REPLACED FOR VALUE OF 3.2, LAB REDRAWS ORDERED FOR AM. MITA NOTED WITH DARK YELLOW URINE, PATIENT ENCOURAGED TO BE DRINKING WATER.
[2019-06-24 19:50] VITALS: BP 112/53
--- NOTE | 2019-06-25 00:36 | NUR ---
ASSUIMED CARE @ 1902-06/24-MONDAY.HOB UP.WATCHING TV.RIGHT HAND SPLINT IN PLACE.FAN CATHETER PATENT.LEFT LE ALREADY UP ON A PILLOW.BED ALARM ALSO ALREADY ON @ 1902.WANTS ONLY SIDERAILS X3 UP.EDEMA-+1 PITTING LEFT ANKLE. WV-STILL 56/MIN BUT REGULAR @ 1949.SEE PAIN MANAGEMENT @ 2101.ON HOURLY ROUNDS.
[2019-06-25 04:52] LABS: HEMATOCRIT 27.5 % (42.0-52.0); HEMOGLOBIN 8.9 gm/dL (14.0-18.0); MCH 27.8 pg (26.0-34.0); MCHC 32.5 g/dL (28.0-37.0); MCV 85.6 fL (80.0-100.0); MPV 8.3 fl. (7.2-11.1); RBC 3.21 mil/uL (4.50-6.00); RDW-CV 18.3 % (10.5-14.5); WBC 3.9 thou/uL (4.0-11.0)
[2019-06-25 05:00] LABS: CALCIUM 8.5 mg/dL (8.5-10.1); MAGNESIUM 1.9 mg/dL (1.8-2.4); POTASSIUM 4.4 mmol/L (3.5-5.1)
--- NOTE | 2019-06-25 05:39 | NUR ---
SLEEPING SINCE 2219 & SLEPT GOOD ALL NIGHT.AWAKENED BY LAB @ 0325 FOR BLOOD DRAW.HAD COUGHING SPELLS.WARM TEA W/ LEMON & HONEY GIVEN & DRANK ALL @ 0350. WENT BACK TO SLEEP.NO FURTHER COUGHING HEARD.
[2019-06-25 07:25] VITALS: BP 134/71
--- NOTE | 2019-06-25 15:50 | NUR ---
SW called pt family with no answer so SW left message requesting a call back with any questions or comments in preparation for team conference tomorrow.
--- NOTE | 2019-06-25 17:43 | NUR ---
ASSUMMED CARE OF PT AT 0730, PT ALERT AND ORIENTED, PT TRANSFERS WITH SQUAT PIVOT WITH MAX ASSIST, GB, TAKING FOOD AND FLUIDS WELL, FAN PATENT AND DRAINING DARK GINA URINE, PT COMPLAINS OF PAIN IN RIGHT FOOT AND LEFT STUMP, MEDICATED PER ORDER, DOES WEAR STUMP PROTECTOR, WORE PROSTHESIS FOR PHYSICAL THERAPY TODAY, HAS SPLINT FOR RIGHT WRIST, PULSE REGULAR AND IN 60'S THIS SHIFT, PT PROPELS W/C INDEPENDENTLY, EDEMA IN RIGHT LEG, DARK IN COLOR, VASCULAR FOLLOWING, PARTICIPATED IN ALL THERAPIES, HOURLY ROUNDING COMPLETED, ASSESSMENT COMPLETE, WILL CONTINUE TO MONITOR.
[2019-06-25 20:12] VITALS: BP 109/54
--- NOTE | 2019-06-26 01:31 | NUR ---
ASSUMED CARE @ 1919-06/25-TUES.SITTING IN TOILET @ THIS TIME.HAS URGE TO HAVE BM BUT NO BM.TRANSFERS PIVOT TRANSFER FROM W/C TO TOILET TO BED W/ MIN ASSIST. HOB UP.WANTS ONLY SIDERAILS X3 UP.LEFT LE & RIGHT HAND BOTH UP ON A PILLOW EACH @ 1929.FAN CATHETER IN PLACE & PATENT.BED ALARM PUT ON @ 1929.NWB RIGHT LE.PATIENT PUTS ON RIGHT HAND SPLINT BY SELF @ 1929.ON HOURLY ROUNDS.SNORING @ 2199.
--- NOTE | 2019-06-26 05:20 | NUR ---
SLEEPING SINCE 2100 & SLEPT GOOD ALL NIGHT.TOOK ALL VANILLA ICE CREAM HS SNACK.
[2019-06-26 08:13] VITALS: BP 124/79
[2019-06-26 12:15] VITALS: BP 121/66
--- NOTE | 2019-06-26 14:10 | NUR ---
Nutrition: Per RN, physician concern with pt's nutrition. Albumin 2.6, prealb 14.7 - severely depleted. However, pt is eating well all meals. He stated he doesn't like the texture of protein powders but he is willing to try it while he is here in rehab. RD ordered Beneprotein. Mild risk. Will continue to follow weekly.
--- NOTE | 2019-06-26 15:16 | NUR ---
ASSUMMED CARE OF PT AT 0730, PT ALERT AND ORIENTED, TRANSFERS WITH MAX/MOD ASSIST WITH A SQUAT PIVOT TRANSFERS IN TO CHAIR, PROPELS W/C INDEPENDENTLY, TAKING FOOD AND FLUIDS WELL, CONCILIATOR TALKED WITH PT ABOUT TAKING SUPPLEMENT AND PT AGREEABLE, PT C/O PAIN IN BOTH LEGS AND IS TRYING TO UNDERSTAND WHY HE CAN STILL FEEL PAIN IN AMPUTATED LEG, DISCUSSED WITH PT, PT MEDICATED PER ORDER, FAN PATENT AND DRAINING DK GINA URINE, NO STOOLS THIS SHIFT, PT COMPLAINED OF LIGHT HEADED AFTER THERAPY, AND COMPLAINED OF NUMBNESS IN FINGERTIPS, BP 121/66 PULSE 80, PT REFUSED TO LAY DOWN STATES HE WAS OK, PT ATE LUNCH IN CHAIR WITH NO FURTHER COMPLAINTS, PARTCIPATED IN ALL THERAPIES, HOURLY ROUNDING COMPLETED, ASSESSMENT COMPLETE WILL CONTINUE TO MONITOR.
--- NOTE | 2019-06-26 15:52 | NUR ---
TJ and Dr Leigh met with pt to review team conference summary and plan for pt to remain on rehab unit to continue therapies at least another week with team to reassess pt length of stay during team conference next Tuesday 07/03. Pt okay with plan. SW to continue to follow to assist with safe dc planning.
--- NOTE | 2019-06-26 15:58 | NUR ---
PT CARE ASSUMED AT THIS TIME, I AGREE WITH PREVIOUS ASSESSMENT.
[2019-06-26 19:28] VITALS: BP 112/71
--- NOTE | 2019-06-26 21:10 | NUR ---
SITTING UP IN BED WATCHING TV. COMPLAINS OF LEFT LEG SPASMS. GAVE SCHEDULED NAPROXEN. ALSO RECEIVES SCHEDULED FLEXERIL. PRN XANAX GIVEN FOR ANXIOUSNESS. FAN TO DEPENDENT DRAINAGE WITH CLOUDY/GINA URINE. SNACK PROVIDED. CALL LIGHT WITHIN REACH. HAS RIGHT ARM SPLINT ON. ELEVATED RIGHT ARM ON A PILLOW.
--- NOTE | 2019-06-27 05:40 | NUR ---
RESTED SOUNDLY ALL NIGHT. NO FURTHER COMPLAINTS OF LEG DISCOMFORT. HOURLY ROUNDING IN PROGRESS.
[2019-06-27 08:00] VITALS: BP 122/72
--- NOTE | 2019-06-27 15:25 | NUR ---
ALERT AND ORIENTED X4. TRANSFERS BY SLIDING HIMSELF WITH MINIMAL ASSIST TO AND FROM BED AND CHAIR. NEEDED SOME ASSIST WITH DRESSING. HAS FAN CATHETER PATENT WITH CLEAR GINA URINE. WEARING BRACE ON RIGHT WRIST. TAKING PO PAIN MEDICATION WITH SOME RELIEF OF RIGHT WRIST PAIN. NEW IV STARTED THIS AM WITHOUT DIFFICULTY FOR CTA TEST DONE THIS AM. USES WALKER, GAIT BELT AND PROSTHETIC ON RIGHT AKA WHEN AMBULATING WITH THERAPY. BED ALARM OR CHAIR ALARM USED AT ALL TIMES. CALL LIGHT WITHIN REACH.
[2019-06-27 20:00] VITALS: BP 114/54
--- NOTE | 2019-06-28 04:50 | NUR ---
ASSUMED PT CARE AT 1930. PT ALERT AND ORIENTED X4, POLITE AND COOPERATIVE WITH CARES. PT SITTING UP IN WHEELCHAIR AT SHIFT CHANGE. TRANSFERRED TO BED BY SLIDING HIMSELF WITH MINIMAL ASSIST. FAN TO DD DRAINING CLEAR GINA URINE. PT WEARING BRACE ON RIGHT WRIST. PT REQUESTED XANAX AT HS. SLEPT WELL OVERNIGHT. CALL LIGHT AND FREQUENTLY USED ITEMS IN REACH. BED ALARM ON FOR SAFETY. HOURLY ROUNDING IN PROGRESS, WILL CONTINUE TO MONITOR.
[2019-06-28 08:02] VITALS: BP 116/65
[2019-06-28 20:21] VITALS: BP 100/61
--- NOTE | 2019-06-28 20:21 | NUR ---
ALERT AND ORIENTED X4. TRANSFERS TO AND FROM CHAIR AND BED BY SLIDING WITH MINIMAL ASSIST OF 1. AMBULATED IN HALLWAY WITH PROSTHESIS FOR AKA OF RIGHT LEG, 1 ASSIST, GAIT BELT AND WALKER. PO PAIN MEDICATION HELPFUL FOR C/O LEG PAIN AND RIGHT WRIST PAIN. WEARING BRACE ON RIGHT WRIST. IV D/C PER PATIENT REQUEST. HAS FAN CATHETER PATENT WITH CLEAR YELLOW URINE. CALL LIGHT WITHIN REACH. BED AND CHAIR ALRM USED
--- NOTE | 2019-06-29 04:45 | NUR ---
ASSUMED PT CARE AT 1930. PT ALERT AND ORIENTED X4, POLITE AND COOPERATIVE WITH CARES. PT SITTING UP IN WHEELCHAIR AT SHIFT CHANGE. TRANSFERRED TO BED BY SLIDING HIMSELF WITH CONTACT GUARD ASSIST. FAN TO DD DRAINING CLEAR GINA URINE. PT WEARING BRACE ON RIGHT WRIST. PT SLEPT WELL OVERNIGHT. CALL LIGHT AND FREQUENTLY USED ITEMS IN REACH. BED ALARM ON FOR SAFETY. HOURLY ROUNDING IN PROGRESS, WILL CONTINUE TO MONITOR.
[2019-06-29 08:30] VITALS: BP 124/74
[2019-06-29 13:55] VITALS: BP 130/61
[2019-06-29 14:00] VITALS: BP 99/44
--- NOTE | 2019-06-29 16:04 | NUR ---
ASSUMMED CARE OF PT AT 0730, PT ALERT AND ORIENTED, PT TRANSFERS WITH A SQUAT PIVOT, WEARS HIS PROSTHESIS WITH THERAPY AND IS PLEASED HOW WELL HE DID TODAY, PT HAD LARGE BM THIS PM, TAKING FOOD AND FLUIDS WELL, PT BP CHECKED SITTING 130/61 AND PULSE OF 73 AND STANDING BP 99/44 AND PULSE 82, PT DENIES ANY DIZZINESS, PT HAD BILTERAL LEG PAIN AND MEDICATED X 1 PER ORDER, PARTICPATED IN ALL THERAPIES,HOURLY ROUNDING COMPLETED, ASSESSMENT COMPLETE, WILL CONTINUE TO MONITOR.
--- NOTE | 2019-06-29 19:40 | NUR ---
ASSISTED FROM WHEELCHAIR TO BED. HELD ONTO PATIENT'S GAITBELT FOR SAFETY, BUT PATIENT DID A SQUAT AND PIVOT TRANSFER WITHOUT ASSISTANCE. FAN TO DEPENDENT DRAINAGE WITH GINA URINE. PAIN MEDICATION GIVEN FOR COMPLAINT OF PAIN IN HANDS AND RIGHT WRIST. HAS SPLINT ON RIGHT ARM. ELEVATED RIGHT ARM ON A PILLOW. CALL LIGHT WITHIN REACH.
[2019-06-29 20:30] VITALS: BP 114/57
--- NOTE | 2019-06-30 05:01 | NUR ---
RESTED QUIETLY. NO FURTHER COMPLAINT OF PAIN. HOURLY ROUNDING IN PROGRESS.
[2019-06-30 07:51] VITALS: BP 146/71
--- NOTE | 2019-06-30 16:29 | NUR ---
ASSUMMED CARE OF PT AT 0730, PT ALERT AND ORIENTED, PT TRANSFERS WITH A STAND PIVOT FROM BED TO CHAIR, PT TAKING FOOD AND FLUIDS WELL, COMPLAINS OF BILATERAL LEG PAIN, MEDICATED PER ORDER, SUPP GIVEN THIS PM AND PT HAD LARGE LOOSE STOOL, FAN PATENT AND DRAINING GINA URINE, PT NOTED TO HAVE A SMALL ABRAISED AREA ON RIGHT THIGH/BUTTOCK, PT STATES IT IS SORE, THINKS IT IS FROM THE TOP OF HIS PROSTHESIS RUBBING ON HIS LEG, PT INFORMED TO HAVE THERAPY NOTE WHERE PROSTHESIS HITS ON HIS UPPER THIGH/LOWER BUTTOCK AREA, AREA CLEANSED AND BARRIER OINTMENT APPLIED, SCAB HEALING TO LEFT ZEE, PT DID SELF SPONGE BATH AND ABLE TO CANDIE HIS CLOTHES INDEPENDENTLY, PROPELS HIS W/C INDEPENDENTLY,MESSAGE LEFT ON SWIM COACH VOICEMAIL REGARDING FITTING FOR SPLINTS TO WRISTS. HOURLY ROUNDING COMPLETE, ASSESSMENT COMPLETE, WILL CONTINUE TO MONITOR.
[2019-06-30 17:25] VITALS: BP 128/63
[2019-06-30 17:30] VITALS: BP 121/46
[2019-06-30 17:35] VITALS: BP 105/44
[2019-06-30 19:30] VITALS: BP 126/66
--- NOTE | 2019-06-30 20:35 | NUR ---
SITTING UP IN WHEELCHAIR WATCHING TV. PAIN MEDICATION GIVEN FOR COMPLAINT OF GENERALIZED PAIN RATED "9". COMPLAINING OF FEELING TOO MUCH PULL ON HIS FAN. NEW STAT LOCKED PLACED. FAN TO DEPENDENT DRAINAGE WITH GINA URINE. TOOK MEDICATIONS WHOLE WITH WATER. SNACK PROVIDED. CALL LIGHT WITHIN REACH.
[2019-07-01 05:01] LABS: HEMATOCRIT 27.4 % (42.0-52.0); MCH 27.4 pg (26.0-34.0); MCHC 32.7 g/dL (28.0-37.0); MCV 83.8 fL (80.0-100.0); MPV 8.3 fl. (7.2-11.1); RBC 3.27 mil/uL (4.50-6.00); RDW-CV 18.4 % (10.5-14.5); WBC 4.1 thou/uL (4.0-11.0)
--- NOTE | 2019-07-01 05:22 | NUR ---
RESTED SOUNDLY. PAIN MEDICATION GIVEN AT 0510 FOR COMPLAINT OF GENERALIZED PAIN RATED "6". HOURLY ROUNDING IN PROGRESS.
[2019-07-01 05:55] LABS: ALBUMIN 2.4 g/dL (3.4-5.0); CALCIUM 8.7 mg/dL (8.5-10.1); CREATININE 0.8 mg/dL (0.6-1.3); MAGNESIUM 2.2 mg/dL (1.8-2.4); POTASSIUM 4.7 mmol/L (3.5-5.1); TOTAL BILIRUBIN 0.2 mg/dL (<0.1-1.0); TOTAL PROTEIN 6.4 g/dL (6.4-8.2)
[2019-07-01 08:15] VITALS: BP 123/73
--- NOTE | 2019-07-01 15:24 | NUR ---
ASSUMED CARE AT 0730. ALERT ORIENTED PLEASANT COOPERATIVE. HX OF ENCEPHALOPATHY. S/P RT. AKA WITH PROSTHESIS. PT. IS IN W/C AT BEDSIDE. FAN PATENT WITH GINA URINE TO DD BAG. DR. JOSHI ORDERED FAN TO BE DISCONTINUED DCD AT 0945 WITH 600CC IN DRAINAGE BAG. PT. VOIDED 240CCS AT 1320 AND PVR WAS 260CCS, VOIDED 240CCS CLEAR GINA URINE PER URINAL AT 1500 AND PVR WAS 384CCS AT 1515. BISACODYL R SUPPOSITORY GIVEN AFTER COMPLETION OF THERAPIES. TRANSFERS WITH 1 ASSIST G BELT WALKER FROM W/C TO BED. [employer] HERE TO CHECK PROSTHETIC PT. HAS A REDDENED AREA POSTERIOR THIGH TINY SCAB. PAlaina. WORKED WITH PT. AND SEGUN FROM [facility] THIS AFTERNOON SESSION. PT. PARTICIPATED IN THERAPIES THROUGHOUT THE DAY. EDUAR WAS CONSULTED TO SUPPLY WRIST SPLINTS THEY HAVE NOT ARRIVED YET. FEEDS SELF APPETITE GOOD. DID HAVE AN ISSUE WITH BREAKFAST WITH SWALLOWING SAUSAGE THIS A. M. STATED HE WAS HURRYING TOO MUCH. INSTRUCTED TO TAKE HIS TIME. WAS 384CCS
[2019-07-01 19:45] VITALS: BP 116/65
--- NOTE | 2019-07-01 19:50 | NUR ---
SITTING UP IN WHEELCHAIR AND WATCHING TV. TRANSFERRED TO BED WITH SBA, GAITBELT, SQUAT, PIVOT. CALL LIGHT WITHIN REACH.
--- NOTE | 2019-07-02 05:49 | NUR ---
USED URINAL X 2 SO FAR THIS SHIFT. AT 2100 VOIDED 200ML AND HAD ZERO RESIDUAL. AT 0105 VOIDED 300 ML AND HAD 117ML RESIDUAL. GAVE PERCOCET PER REQUEST AT 0110 FOR COMPLAINT OF GENERALIZED PAIN RATED "6" WITH RELIEF. HOURLY ROUNDING IN PROGRESS.
[2019-07-02 07:27] VITALS: BP 136/71
--- NOTE | 2019-07-02 09:57 | NUR ---
PT WAS FEELING WHEEZY THIS AM,LUNG SOUNDS ARE CLEAR,PT FEELS BETTER NOW. CALL TO LAB SUPPORT SERVICE TECH ABOUT BILAT WRIST SPLINTS AND RAYSA AWARE AND WILL E-MAIL PERSON OBTAINING SPLINTS.
--- NOTE | 2019-07-02 12:55 | NUR ---
MEERA HAS RETURNED CALL AND [facility] WOULD BE CHARGED FOR WRIST BRACES DUE TO NOT BEING ABLE TO CHARGE MEDICARE WHILE A PATIENT HERE. PT COULD TAKE SCRIPT TO ECHOCARDIOGRAPH TECH WHEN DISCHARGED AND THEN MEDICARE WOULD BE CHARGED FOR BRACES.PT AWARE.
--- NOTE | 2019-07-02 16:34 | NUR ---
PT RESTS IN BED AND HAS HAD DULCOLAX SUPP THIS AFTERNOON. PT VOIDS WELL WITH 300ML VOIDED AND 79ML PER BLADDER SCAN.PT FEELS A LITTLE SOB WITH SMALL EXIPIRATORY WHEEZES HEARD BILAT. CALL OUT TO . PT HAS W0RKED WITH THERAPIES AND FEELS LIKE HE HAS HAD A WORKOUT.
--- NOTE | 2019-07-02 16:53 | NUR ---
PT HAS ORDERS FOR REST TX AND THEY WILL COME TO GIVE PT TREATMENT PER REQUEST.
[2019-07-02 19:27] VITALS: BP 129/61
--- NOTE | 2019-07-03 01:29 | NUR ---
ASSUMED CARE @ 1924-07/02-.AWAKE IN BED W/ HOB UP.URINAL W/IN REACH. RIGHT HAND SPLINT ON.RIGHT HAND & LEFT LE BOTH UP ON A PILLOW EACH @ 1924.MOISTURE BARRIER CREAM APPLIED TO DRY PINK/RED ABRASIONS RIGHT UPPER THIGH @ 1929.WANTS TO SIT UP IN W/C & SBA W/ GAIT BELT @ 1935.TRANSFERS PIVOT TRANSFER FROM BED TO W/C.STAYED IN ROOM WATCHING TV.CGA BACK TO BED @ 2099- STANDS ON HIS LEFT LE DURING TRANSFER.REMOVEDS RIGHT HAND SPLINT @ 2099.BED ALARM PUT ON @ 2099.WANTS SHIRT OFF @ 2099.LUNGS-EXP.WHEEZES ALL LOBES.RESP. TX GIVEN @ 29-07/03-MON.PER PT'S REQUEST.HAS WHEEZES EVEN SLEEPING.ON HOURLY ROUNDS.
--- NOTE | 2019-07-03 05:55 | NUR ---
SLEEPING SINCE 2300 TO 0400.HAVING EXP.WHEEZING AGAIN @ 0500.02 SAT-97%NM-79 PER MINUTE.RR-16/MIN.O2 PUT ON @ 2L/NC.CALLED FOR RESP TX 2ND TIME.RESP.TX GIVEN @ 0540.LESS WHEEZING AFTER RESP. TX.USED URINAL X5 DURING NIGHT.NURSE JUST EMPTIES URINAL @ NIGHT.TOOK ALL VANILLA & CHANDA.ICE CREAM HS SNACKS & 1/3 COKE.SLEEPING @ 0600-W/OUT WHEEZING.
[2019-07-03 08:30] VITALS: BP 125/72
--- NOTE | 2019-07-03 16:26 | NUR ---
ALERT AND ORIENTED X4. TRANSFERS BACK AND FORTH FROM CHAIR TO BED WITH GAIT BELT AND 1 ASSIST. PATIENT C/O NOT FEELING WELL TODAY AND NEEDING MORE ASSIST WITH SLIDING/PIVOT TRANSFERS. USING PO PAIN MEDICATION TO HELP WITH PAIN. HAD SOME INCONTINENCE OF URINE BUT DID USE URINAL AT TIMES. INCONTINENT OF LOOSE STOOL IN PULL UP. LUNG SOUNDS NOTED TO HAVE EXP. WHEEZES THROUGHOUT. PATIENT C/O BEING MORE SOA WITH TRANSFERS TODAY AND O2 APPLIED FOR SHORT PERIOD AFTER TRANSFER THIS AM. DR NOTIFIED AND HERE TO SEE PATIENT. NEW BREATHING TREATMENTS ORDERED. PATIENT STATED HE WAS FEELING BETTER THIS AFTERNOON. CALL LIGHT WITHIN REACH. BED ALARM AND CHAIR ALARM USED.
--- NOTE | 2019-07-03 18:20 | NUR ---
TJ and Dr Leigh met with pt to review team conference summary and plan for pt to dc on Monday; team suggesting SNF, pt refusing that plan so TJ and Dr Leigh proposed pt come in for family training; TJ called and discussed with pt and scheduled family training for at 1 pm. Pt plans to be able to follow up with OP therapy at [facility].
[2019-07-03 19:40] VITALS: BP 112/68
--- NOTE | 2019-07-03 19:40 | NUR ---
SITTING UP IN WHEELCHAIR. STATES GENERALIZED PAIN AT A "5". HAD A PERCOCET AT 1715. HAS SCHEDULED FLEXERIL, NAPROXEN AND GABAPENTIN. WANTS TO STAY UP FOR AWHILE. PROPELS SELF AROUND ROOM IN WHEELCHAIR.
--- NOTE | 2019-07-04 05:39 | NUR ---
RESTED QUIETLY. NO FURTHER COMPLAINT OF PAIN. 02 NC AT TWO LITERS. USED URINAL X ONE DURING THE NIGHT. HOURLY ROUNDING IN PROGRESS.
[2019-07-04 08:00] VITALS: BP 137/80
--- NOTE | 2019-07-04 15:43 | NUR ---
WOUND CARE NOTE: WAS REQUESTED TO ASSESS A LESION TO THE PATIENT'S MEDIAL/POSTERIOR UPPER THIGH. PATIENT WEARS A PROSTHETIC TO THE RIGHT LOWER EXTREMITY DUE TO AN AKA. APPEARS THAT THIS HAS EITHER RUBBED HIM OR HIS SHORTS HAVE GOTTEN STUCK AND CAUSED A PARTIAL THICKNESS LESION MEASURING APPROXIMATELY 0.1X0.2X0.1. MOIST, PALE WOUND BED. SANDRA-WOUND WITH BLANCHABLE REDNESS, APPEARS IRRITATED. PATIENT STATES HE DIDN'T EVEN KNOW IT WAS THERE. APPLIED A BORDERED FOAM OVER AREA AND PLAN WAS TO LEAVE PROSTHETIC OFF AT THIS TIME. RECOMMEND ATTEMPT TO PAD PROSTHETIC THEN USE BARRIER OINTMENT OVER LESION WHEN PROSTHETIC IN USE. CONTINUE WITH WAFFLE CUSHION USE.
--- NOTE | 2019-07-04 17:23 | NUR ---
ASSUMMED CARE OF PT AT 0730, PT ALERT AND ORIENTED, PT DOES STAND PIVOT TRANSFERS WITH MIN/SBA AND GB, PT STATES HE IS ANXIOUS ABOUT HIS DISCHARGE ON MONDAY, XANAX GIVEN X 1, COMPLAINED OF PAIN IN BILATERAL LEGS, MEDICATED X 1 PER ORDER, PT COMPLAINS OF ITCHINESS ON NECK, RIGHT SIDE AND RIGHT ARM, A COUPLE OF HIVES NOTED AND A RAISED RED RASH NOTED IN THESE AREAS, PHYSICIAN NOTIFIED AND ORDERS OBTAINED, MEPILEX APPLIED PER WD NURSE TO OPEN AREA ON UPPER RIGHT THIGH, PT TAKING FOOD AND FLUIDS WELL, VOIDING IN GOOD AMOUNTS PER URINAL, PT REFUSED SUPPOSITORY THIS SHIFT, PASSING LARGE AMOUNT OF FLATUS, TAKING MIRALAX AND COLACE, PT STATES HE WILL TAKE SUPP IN AM BUT WOULD LIKE EARLY IN AM SO IT DOES NOT INTERFERE WITH THERAPY, PT C/O SOA THIS PM AFTER THERAPY, O2 SAT 96% ON RA, PRN NEB GIVEN AND PT STATES HE FEELS BETTER, PARTICIPATED IN ALL THERAPIES, HOURLY ROUNDING COMPLETED, ASSESSMENT COMPLETE, WILL CONTINUE TO MONITOR.
[2019-07-04 19:42] VITALS: BP 112/53
--- NOTE | 2019-07-04 22:21 | NUR ---
ASSUMED CARE AT 1930. PATIENT RESTING IN BED. TURNS SELF. OBSERVED ITCHING, DOES HAVE HIVES ON BACK, LEGS. GIVEN METHYPREDNISOLONE IM RIGHT HIP AND GAVE EDUCATION ABOUT THE MEDICINE. HAD BENADRYL LATE ON DAYS, NOT DUE AT THIS TIME. TAKES MEDS WHOLE WITH WATER. NO C/O PAIN. HOURLY ROUNDS CONTINUE. BED ALARM ON. CALL LITE IN REACH. HOURLY ROUNDS CONTINUE. BED ALARM ON. CALL LITE IN REACH.
[2019-07-05] VITALS (8 sets, daily range): BP systolic 78–138; BP diastolic 44–60
[2019-07-05 11:29] LABS: BE -1.8 mmol/L (-2 to +3); PCO2 46.7 mmHg (35.0-45.0); pH 7.335 (7.340-7.450)
[2019-07-05 11:31] LABS: PO2 56.7 mmHg (75.0-100.0)
[2019-07-05 11:52] LABS: ABSOLUTE EOSINOPHILS 0.4 thou/uL (0.0-0.7); ABSOLUTE LYMPHOCYTES 1.2 thou/uL (0.8-5.3); ABSOLUTE MONOCYTES 0.4 thou/uL (0.0-1.2); ABSOLUTE NEUTROPHILS 5.4 thou/uL (1.6-8.1); BASOPHILS 0.4 %; EOSINOPHILS 5.1 %; HEMATOCRIT 34.1 % (42.0-52.0); MCHC 32.2 g/dL (28.0-37.0); MCV 83.6 fL (80.0-100.0); MONOCYTES 5.8 %; MPV 8.3 fl. (7.2-11.1); NUCLEATED RBCS 0 /100WBC; PLATELET COUNT* 239 thou/uL (150-400); POLYS 72.7 %; RBC 4.08 mil/uL (4.50-6.00); RDW-CV 17.8 % (10.5-14.5); WBC 7.5 thou/uL (4.0-11.0)
[2019-07-05 12:00] LABS: CALCIUM 8.9 mg/dL (8.5-10.1); CREATININE 1.4 mg/dL (0.6-1.3); POTASSIUM 5.5 mmol/L (3.5-5.1)
[2019-07-05 12:08] LABS: ALBUMIN 2.8 g/dL (3.4-5.0); TOTAL BILIRUBIN 0.6 mg/dL (<0.1-1.0); TOTAL PROTEIN 7.3 g/dL (6.4-8.2)
--- NOTE | 2019-07-05 13:33 | EKG ---
[place] [address] ELECTROCARDIOGRAM REPORT Name: APURVA PINEDA Room: [address] ADM IN M.R.#: [id number] Admission: 06/20/19 Attend Phys: Calos Leigh MD Discharge: Date of : 43 Report #: [id number] THIS REPORT FOR: //name// [facility] Test Date: 2019-07-05 Test Time: 11:35:50 Pat Name: APURVA PINEDA Department: Room: [address] Gender: M Field Servicer: : 1945 Requested By: Marcio Story Order Number: [id number] Jonathan MD: Biju Gupta Measurements Intervals [place] Rate: 80 P: 4 ID: [id number] QRS: -26 QRSD: 104 T: 77 QT: 393 QTc: 454 Interpretive Statements Sinus rhythm Incomplete RBBB and LAFB Abnormal R-wave progression, late transition Compared to ECG 06/24/2019 14:31:12 Left anterior fascicular block now present Incomplete right bundle-branch block now present Sinus bradycardia no longer present Atrial premature complex(es) no longer present T-wave abnormality no longer present Electronically Signed On 07-05-2019 13:33:08 REEL ASSEMBLER by Biju Gupta [email or web address] <ELECTRONICALLY SIGNED> By: Biju Gupta MD, [facility] 07/05/19 1333 1135 1135 Biju Gupta MD, [facility] /EPI
--- NOTE | 2019-07-05 13:59 | NUR ---
ASSUMMED CARE OF PT AT 0730, PT ALERT AND ORIENTED, PT STAND PIVOT TRANSFER, UP ON COMMODE X 1 WITH SMALL AMOUNT UNFORMED STOOL, SMALL AMOUNT OF BLOOD NOTED IN COMMODE, PT STATES HE HAS HAD HEMMORHOIDS IN PAST, PT PARTICIPATED IN AM THERAPIES,PT CONTINUES TO HAVE AREAS OF NEW HIVES NOTED WITH OTHER AREAS WHERE HIVES HAVE DISAPPEARED, C/O ITCHING, PT ALSO STATES HE IS ANXIOUS ABOUT DISCHARGE ON MONDAY, MEDICATED X 1 FOR ANXIETY PER PT REQUEST, PT DENIES NEED FOR PAIN MEDICATION, TAKING FOOD AND FLUIDS WELL, PT SITTING IN WHEELCHAIR AFTER THERAPY SESSION, ENTERED ROOM AND CAME OUT TO DESK AND STATED SHE COULD NOT WAKE UP , ENTERED ROOM AT 1115 AND UNABLE TO AROUSE PATIENT, RAPID RESPONSE INITIATED, PT LIFTED INTO BED, O2 APPLIED, IV STARTED IN LEFT FOREARM, BOLUS FLUIDS STARTED, LABS DRAWN, PT COLOR IMPROVED WHEN SUPINE, VS CHECKED FREQUENTLY AND BP REMAINS LOW, DOSE OF MIDODRINE GIVEN, PT CONINUES TO BE MORE AROUSABLE, PHYSICIAN AWARE OF LABS, EKG DONE, PT ABLE TO EAT LUNCH AND TALK WITH , PT CONTINUES TO FALL ASLEEP EASILY BUT DOES AROUSE WITH STIMULATION, PT ON O2 AT 2 L SATS OF 96%, CXR COMPLETED, WILL CONTINUE TO MONITOR.
--- NOTE | 2019-07-06 00:46 | NUR ---
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
--- NOTE | 2019-07-06 05:44 | NUR ---
SLEEPING SINCE 1925 & SLEPT GOOD ALL NIGHT.TOOK ONLY ORANGE JUICE HS SNACK W/ HS DOSE MIRALAX.USED URINAL X5.NURSE EMPTIES URINAL @ NIGHT.URINE ACCIDENT X1.PT DID OWN SANDRA CARE & CHANGED PULL UPS & SHORTS IND.SEE PAIN MANAGEMENT @ 0205.VOIDED 200 ML @ 0200.BLADDER SCAN DONE-115 ML.PVR.
[2019-07-06 08:14] LABS: CALCIUM 8.1 mg/dL (8.5-10.1); CREATININE 1.1 mg/dL (0.6-1.3); MAGNESIUM 1.9 mg/dL (1.8-2.4); POTASSIUM 5.1 mmol/L (3.5-5.1)
[2019-07-06 08:16] VITALS: BP 111/62
[2019-07-06 09:14] VITALS: BP 87/50
[2019-07-06 09:43] VITALS: BP 109/58
--- NOTE | 2019-07-06 10:07 | NUR ---
ASSUMED CARE AT 0730. ALERT ORIENTED PLEASANT COOPERATIVE. HX OF RT. AKA AND ENCEPHALOPATHY. PT. RESTING IN BED WHEN NURSE ARRIVED IS WILLING TO GET UP TO W/C FOR O.T. AND THEN BREAKFAST. NO DIZZINESS UPON ARISING TO STANDING POSITION. SEE GRAPHICS FOR VS AND O2 SATS. PT. DOES GET SOA WITH ACTIVITY 85-89% RA. HAD SMALL BM ON PAD IN BED. ATTEMPTED TO VOID IN URINAL NO VOID BUT HAD URGE.
--- NOTE | 2019-07-06 10:18 | NUR ---
PT. APPETITE FAIR AT BREAKFAST TOOK MEDS WITHOUT DIFFICULTY. RASH CONTINUES TO BE ITCHY HYDROCORTISONE CREAM APPLIED. PT. STATED HE WAS HAVING VISUAL HALLUCINATIONS AND FEELING DIZZY SEE GRAPHICS. PT. KNEW THE HALLUCINATIONS WERE NOT REAL. O2 PLACED AT 2L/M PER N/C. ASSISTED INTO BED BY O.T. RESTING QUIETLY.DR. CHAU WILL SEE PT. THIS A.M.
[2019-07-06 17:03] VITALS: BP 139/59
[2019-07-06 19:20] VITALS: BP 133/61
--- NOTE | 2019-07-07 00:58 | NUR ---
ASSUMED CARE @ 1925-07/06-SAT.SITS IN RECLINER WATCHING TV.CHAIR ALARM 0N @ 1925.URINAL W/IN REACH.PIVOT TRANSFER W/ SBA FROM RECLINER TO W/C TO BED @ 1935.LEFT LE & RIGHT HAND ELEVATED EACH ON A PILLOW.BED ALARM PUT ON @ 1939. WEARS PULL UPS.RIGHT HAND SPLINT APPLIED BY PATIENT @ 1945.ON HOURLY ROUNDS. COURIER DRIVER DOING ODD HOUR ROUNDS.
--- NOTE | 2019-07-07 05:52 | NUR ---
SLEEPING SINCE 2199.SALINE LOCK WILL NOT FLUSH.NEEDLE KINK.REMOVED @ 0110. REQUESTED RESP TX X2 @ 0125 & 0550.BENADRYL OINT APPLIED TO ITCHY AREAS @ 0107.REFUSED HS SNACK.USED URINAL X4.NURSE EMPTIES URINAL @ NIGHT.
[2019-07-07 07:20] VITALS: BP 130/72
--- NOTE | 2019-07-07 17:48 | NUR ---
PT A&OX4 VSS. TOPICAL HYDROCORTISONE TO TREAT HIVES/REDNESS/ITCHING TO SKIN. PT TRANSFERS WITH MINIMAL ASSIST, GAIT BELT. PT IS CONTINENT OF B/B. POSSIBLE DC TO HOME TOMORROW. REGULAR DIET TOLERATED DENIES N/V. PT REPORTS MODERARTE SIZE BM THIS AFTERNOON. PT UP TO WC FOR MEALS. PT RESTS IN ROOM WITH CALL LIGHT IN REACH. PT ACCUCHECK AC/HS TO MONITOR BLOOD GLUCOSE. PT CHOSE TO EAT DINNER IN HIS ROOM THIS EVENING, STATING HE DOESN'T FEEL WELL. V/S FOLLOWS: BP 139/77, HR 75, O2 SAT 94% ON RA. WILL CONTINUE TO MONITOR.
[2019-07-07 19:30] VITALS: BP 160/84
[2019-07-08 04:44] LABS: HEMOGLOBIN 9.6 gm/dL (14.0-18.0); MCH 27.3 pg (26.0-34.0); MCV 82.8 fL (80.0-100.0); MPV 7.4 fl. (7.2-11.1); NUCLEATED RBCS 0 /100WBC; RDW-CV 17.3 % (10.5-14.5); WBC 3.9 thou/uL (4.0-11.0)
[2019-07-08 04:49] LABS: PLATELET COUNT* 150 thou/uL (150-400)
[2019-07-08 05:14] LABS: CALCIUM 8.1 mg/dL (8.5-10.1); CREATININE 0.7 mg/dL (0.6-1.3); POTASSIUM 4.5 mmol/L (3.5-5.1)
[2019-07-08 05:36] LABS: ABSOLUTE EOSINOPHILS 0.7 thou/uL (0.0-0.7); ABSOLUTE LYMPHOCYTES 0.7 thou/uL (0.8-5.3); ABSOLUTE MONOCYTES 0.1 thou/uL (0.0-1.2); ABSOLUTE NEUTROPHILS 2.3 thou/uL (1.6-8.1); ANISOCYTOSIS 1+; OVALOCYTES 1+; PLATELET ESTIMATE ADEQUATE; POIKILOCYTOSIS 1+
[2019-07-08 08:13] VITALS: BP 143/72
--- NOTE | 2019-07-08 11:11 | NUR ---
WOUND NURSE: PATIENT SEEN TO ADDRESS PREVIOUS MINOR LESION ON THE RIGHT POSTERIOR THIGH NEAR THE GLUTEAL CREASE. THIS SITE IS HEALED WITH INTACT SCAR TISSUE. THERE IS ALSO A SMALL LESION ON THE LEFT TIBIA MEASURING 3.0 X 0.1 CM. WITH INTACT SUPERFICIAL APPEARING STABLE SCAB IN PLACE. NO DRESSINGS ARE REQUIRED TO EITHER SITE.
--- NOTE | 2019-07-08 16:46 | NUR ---
TJ and Dr Leigh met with pt to review team conference summary and plan for pt to dc to SNF as team's recommendation for pt to continue therapies for a couple of weeks in SNF prior to dc home. Pt and SW to discuss SNF options and then pt came to visit and said that pt would not be going to SNF and pt would go home with and continue OP therapies at [facility]. Pt agreed to being able to go home with instead of SNF after all and said he actually felt better today and agreed with dc tomorrow Monday 07/09 to home with and OP therapy to follow.
--- NOTE | 2019-07-08 18:21 | NUR ---
PATIENT AWAKE IN WHEELCHAIR. ALL SAFETY MEASURES MAINTAINED. PATIENT DENIES FURTHER NEEDS AT THIS TIME.
[2019-07-08 19:31] VITALS: BP 147/68
--- NOTE | 2019-07-08 23:32 | NUR ---
ASSUMED CARE AT 1930. PATIENT IN W/C UNTIL HS. UP WITH SBA, GAIT BELT, STAND PIVOT TO BED WITHOUT USING PROTHESIS. MOVES SELF IN BED. O2 2L/NC PER REQUST. C/O SOA AT BEGINNING OF SHIFT, RESP TX CALLED, SCHEDULED BREATHING TREATMENT GIVEN. RT EDUCATED PATIENT ABOUT TREATMENTS. HAS SAT UP ON SIDE OF BED WITH LEGS DEPENDENT FOR BETTER BREATHING. ALLERGIC RASH IMPROVED, STILL GETTING TOPICAL CREAMS FOR THIS. HOURLY ROUNDS CONTINUE. BED ALARM ON. CALL LITE IN REACH.
--- NOTE | 2019-07-09 06:19 | NUR ---
AWOKE AFTER MIDNIGHT AND C/O SOA. REASSURED, BREATHING TREATMENT DONE BY RYohanT. SEE SEP. GOT BREATHING TREATMENTS ABOUT EVERY 4 HOURS TONIGHT PER ORDER. NO C/O PAIN. VOIDS PER URINAL WHILE SITTING ON SIDE OF BED. HOURLY ROUNDS CONTINUE. BED ALARM ON. CALL LITE IN REACH.
[2019-07-09 07:36] VITALS: BP 136/81
[2019-07-09] MEDS ORDERED: MIDODRINE HCL 55 M1 PO (10:54)
[2019-07-09 11:35] VITALS: BP 136/81
[2019-07-09 11:44] VITALS: BP 136/81
--- NOTE | 2019-07-09 13:18 | NUR ---
PATIENT AWAKE IN W/C. ALL SAFETY MEASURES MAINTAINED. DISCHARGE PAPERWORK AND PRESCRIPTIONS GIVEN TO PATIENT'S . PATIENT DENIES FURTHER QUESTIONS AND NEEDS AT THIS TIME.
[2019-07-09 13:38] VITALS: BP 136/81
== END 2019-07-09 13:15 | disposition home or self-care (01) | DRG 70 ==
LOC: M.REH 14:52
PROVIDERS: Family Medicine; Internal Medicine; ADMIT Physical Medicine & Rehabilitation
DX: G93.41 Metabolic encephalopathy (principal); J18.9 Pneumonia, unspecified organism; N39.0 Urinary tract infection, site not specified; K57.92 Diverticulitis of intestine, part unspecified, without perforation or abscess without bleeding; I10 Essential (primary) hypertension; I25.10 Atherosclerotic heart disease of native coronary artery without angina pectoris; D64.9 Anemia, unspecified; E11.42 Type 2 diabetes mellitus with diabetic polyneuropathy; M51.36 Other intervertebral disc degeneration, lumbar region; F03.90 Unspecified dementia, unspecified severity, without behavioral disturbance, psychotic disturbance, mood disturbance, and anxiety; R41.0 Disorientation, unspecified; E87.6 Hypokalemia; R53.81 Other malaise; R33.9 Retention of urine, unspecified; N40.1 Benign prostatic hyperplasia with lower urinary tract symptoms; Z88.8 Allergy status to other drugs, medicaments and biological substances; Z87.01 Personal history of pneumonia (recurrent); Z87.442 Personal history of urinary calculi; Z98.41 Cataract extraction status, right eye; Z89.611 Acquired absence of right leg above knee; Z86.718 Personal history of other venous thrombosis and embolism; Z79.01 Long term (current) use of anticoagulants; Z82.49 Family history of ischemic heart disease and other diseases of the circulatory system

== ENCOUNTER → 2019-09-11 | Day surgery (SDC) | payer MEDICARE, BC ==
[~2019-09-11] MED LIST changes: +CIPRO250 M2 PO; +MIDODRINE HCL 55 M1 PO; +NEURONTIN 300M300 M2 PO; +NORCO 5-325 TA1 EAC1 PO; +PROSCAR 5MG TABL5 MG PO; +SENNA S TABLET1 EACH PO
--- NOTE | 2019-09-18 10:48 | OP ---
[address] [address] OPERATIVE REPORT Name: APURVA PINEDA Room: [facility].#: [id number] Admission: 09/11/19 Attend Phys: Baldev Corrales MD Discharge: Date of : 43 Report #: [id number] THIS REPORT FOR: //name// cc: Adair Trent Bradley L. DO ~ THIS REPORT FOR: //name// CC: [facility] Adair Corrales DATE OF SERVICE: 09/11/2019 PREOPERATIVE DIAGNOSIS: Bladder calculi. POSTOPERATIVE DIAGNOSES: Bladder calculi with benign prostatic hyperplasia and oozing from prostate. PROCEDURE PERFORMED: 1. Cystoscopy with litholapaxy of stone burden greater than 5 cm total. 2. Fulguration of prostate. SURGEON: Baldev Corrales MD COMPLICATIONS: None. DRAINS: Include a 20-Bhutanese Rojo catheter. SPECIMENS: Stone fragments to pathology. ANESTHETIC: General. BLOOD LOSS: Minimal. STATEMENT OF MEDICAL INDICATION: A 74-year-old male with a history of BPH and bladder calculi. He was recently hospitalized, has had recurrent UTIs, has had a prior TURP as well. By CT scan, he was noted to have at least two large bladder calculi and has been apprised the options of management, he has elected to undergo cystoscopy with litholapaxy. He understands the procedure, risks, potential complications including but not limited to bleeding, infection, injury to the urinary tract or adjacent structures, incomplete removal of stones, need for additional procedures and wished to proceed. DESCRIPTION OF PROCEDURE: Therefore, following informed consent and with several days of culture specific antibiotics, the patient was taken to the operating room and placed under general anesthesia. He was [place] [address] OPERATIVE REPORT Name: EDWINAPURVAVONNIE MILLERLAS Room: [facility]#: [id number] Admission: 09/11/19 Attend Phys: Baldev Corrales MD Discharge: Date of : 43 Report #: [id number] in sterile fashion in dorsal lithotomy position. Cystoscopy was carried out with a 25-Bhutanese cystoscope. The patient has a normal anterior urethra. He has an open prostatic fossa prior TURP with some residual intravesical component of prostate tissue. He does have a false passage posteriorly. Bladder shows many cellules, trabeculation and diverticuli. Two large bladder stones with a total volume greater than 5 cm were noted within the bladder. A 1000 watt holmium laser fiber was used to fragment the stones into multiple tiny pieces, which were then evacuated using an SMS GupShup evacuator. Following this, reinspection revealed some oozing from the prostatic tissue and therefore this was fulgurated using the Bugbee electrode. Uro-Jet was placed per urethra. The patient was given a B and O suppository and a 20-Bhutanese catheter was placed over a catheter guide to avoid the posterior false passage. This concluded the procedure. The patient returned to recovery room in satisfactory condition, will be given a voiding trial in 48 hours. <ELECTRONICALLY SIGNED> By: Baldev Corrales MD 09/18/19 1048 [id number] Corrales MD /nt
[2019-09-26 10:08] LABS: STONE CA OXALATE MONOHYDRATE 20 % (()); STONE COLOR Brown (()); STONE SIZE 3x3 mm (()); STONE URIC ACID 80 % (()); STONE WEIGHT 928.1 mg (())
== END | disposition home or self-care (01) ==
LOC: M.SUR 05:46
PROVIDERS: Urology
DX: N21.0 Calculus in bladder (principal); N40.0 Benign prostatic hyperplasia without lower urinary tract symptoms; I73.9 Peripheral vascular disease, unspecified; Z98.890 Other specified postprocedural states; Z79.899 Other long term (current) drug therapy; Z86.711 Personal history of pulmonary embolism; Z88.8 Allergy status to other drugs, medicaments and biological substances; Z79.01 Long term (current) use of anticoagulants; Z87.442 Personal history of urinary calculi

== ENCOUNTER 2019-09-16 17:49 | Emergency (ER) | payer MEDICARE, BC ==
[~2019-09-16] VITALS: Ht 182.9 cm; Wt 79.4 kg
[2019-09-16 18:07] LABS: ABSOLUTE EOSINOPHILS 0.2 thou/uL (0.0-0.7); ABSOLUTE LYMPHOCYTES 1.3 thou/uL (0.8-5.3); ABSOLUTE MONOCYTES 0.4 thou/uL (0.0-1.2); ABSOLUTE NEUTROPHILS 3.3 thou/uL (1.6-8.1); BASOPHILS 0.8 %; EOSINOPHILS 3.9 %; HEMOGLOBIN 9.8 gm/dL (14.0-18.0); LYMPHOCYTES 24.1 %; MCH 25.2 pg (26.0-34.0); MCHC 32.7 g/dL (28.0-37.0); MCV 77.3 fL (80.0-100.0); MONOCYTES 8.3 %; MPV 7.6 fl. (7.2-11.1); NUCLEATED RBCS 0 /100WBC; PLATELET COUNT* 149 thou/uL (150-400); POLYS 62.9 %; RBC 3.88 mil/uL (4.50-6.00); RDW-CV 17.8 % (10.5-14.5); WBC 5.2 thou/uL (4.0-11.0)
[2019-09-16 18:17] LABS: APTT 26.6 Seconds (25.0-31.3); PROTIME 9.9 Seconds (9.20-11.50)
[2019-09-16 18:23] LABS: CALCIUM 8.2 mg/dL (8.5-10.1); CREATININE 0.6 mg/dL (0.6-1.3); POTASSIUM 4.4 mmol/L (3.5-5.1)
[2019-09-16 18:28] LABS: ALBUMIN 2.9 g/dL (3.4-5.0); TOTAL BILIRUBIN 0.3 mg/dL (<0.1-1.0); TOTAL PROTEIN 6.7 g/dL (6.4-8.2)
[2019-09-16 19:30] VITALS: BP 143/80
== END 2019-09-16 19:30 | disposition home or self-care (01) ==
LOC: M.ERS 17:49
PROVIDERS: Family Medicine
DX: S00.03XA Contusion of scalp, initial encounter (principal); I10 Essential (primary) hypertension; I71.4 Abdominal aortic aneurysm, without rupture; E11.9 Type 2 diabetes mellitus without complications; Z96.653 Presence of artificial knee joint, bilateral; Z90.49 Acquired absence of other specified parts of digestive tract; Z87.442 Personal history of urinary calculi; Z88.6 Allergy status to analgesic agent; Z88.8 Allergy status to other drugs, medicaments and biological substances; W05.0XXA Fall from non-moving wheelchair, initial encounter; Y93.89 Activity, other specified; Y92.89 Other specified places as the place of occurrence of the external cause; Y99.8 Other external cause status

== ENCOUNTER 2020-01-07 11:42 | Emergency (ER) | payer MEDICARE, BC ==
[~2020-01-07] VITALS: Ht 182.9 cm; Wt 81.7 kg
[2020-01-07 12:08] LABS: ABSOLUTE EOSINOPHILS 0.1 thou/uL (0.0-0.7); ABSOLUTE MONOCYTES 0.3 thou/uL (0.0-1.2); ABSOLUTE NEUTROPHILS 4.5 thou/uL (1.6-8.1); BASOPHILS 0.6 %; EOSINOPHILS 2.4 %; HEMATOCRIT 34.5 % (42.0-52.0); HEMOGLOBIN 11.4 gm/dL (14.0-18.0); LYMPHOCYTES 17.1 %; MONOCYTES 5.6 %; MPV 7.8 fl. (7.2-11.1); NUCLEATED RBCS 0 /100WBC; PLATELET COUNT* 153 thou/uL (150-400); POLYS 74.3 %; RBC 4.36 mil/uL (4.50-6.00); RDW-CV 18.3 % (10.5-14.5); WBC 6.1 thou/uL (4.0-11.0)
[2020-01-07 12:17] LABS: APTT 25.2 Seconds (25.0-31.3); CALCIUM 8.2 mg/dL (8.5-10.1); CREATININE 0.8 mg/dL (0.6-1.3); POTASSIUM 4.2 mmol/L (3.5-5.1)
[2020-01-07 12:46] LABS: ALBUMIN 3.3 g/dL (3.4-5.0); CK-MB MASS 1.1 ng/mL (<0.5-3.6); TOTAL BILIRUBIN 0.3 mg/dL (<0.1-1.0); TOTAL PROTEIN 7.1 g/dL (6.4-8.2)
[2020-01-07 12:59] LABS: URINE BILIRUBIN NEGATIVE (Negative); URINE BLOOD TRACE (Negative); URINE CLARITY CLEAR; URINE COLOR YELLOW; URINE GLUCOSE-RANDOM 1+ (Negative); URINE KETONES NEGATIVE (Negative); URINE NITRITE-REFLEX NEGATIVE (Negative); URINE PROTEIN NEGATIVE (Negative); URINE SPECIFIC GRAVITY 1.025 (1.005-1.030); URINE UROBILINOGEN 0.2 E.U./dl (0.2-1.0)
[2020-01-07 13:01] LABS: URINE LEUKOCYTES-REFLEX 2+ (Negative)
[2020-01-07 13:07] LABS: CASTS None Seen /LPF (None Seen); MUCUS 0-3 Light strn/LPF (None Seen); SQUAMOUS 0-3 Few /LPF (0-3); URINE RBC 0-2 Rare /HPF (0-2); URINE WBC-REFLEX >25 Many /HPF (0-5)
[2020-01-07 13:08] LABS: CRYSTALS None Seen /LPF (None Seen)
[2020-01-07] MEDS ORDERED: CIPROFLOXACIN500 M1 PO (13:40)
[2020-01-07 13:53] VITALS: BP 152/83
--- NOTE | 2020-01-09 08:33 | EKG ---
[place] [address] ELECTROCARDIOGRAM REPORT Name: APURVA PINEDA Room: [facility]#: [id number] Admission: 01/07/20 Attend Phys: Discharge: 01/07/20 Date of : 43 Date of Service: 01/07/20 1338 Report #: [id number] THIS REPORT FOR: //name// [facility] ED Test Date: 2020-01-07 Test Time: 13:38:11 Pat Name: APURVA PINEDA Department: Room: Gender: [employer]: [facility] : 1945 Requested By: Benja Juarez Order Number: [id number] MD: Helder Brown Measurements Intervals [place] Rate: 75 P: 25 VT: 184 QRS: -51 QRSD: 103 T: 40 QT: 384 QTc: 429 Interpretive Statements Sinus rhythm Atrial premature complex Left anterior fascicular block Abnormal R-wave progression, late transition Borderline T wave abnormalities Compared to ECG 07/05/2019 11:35:50 Atrial premature complex(es) now present T-wave abnormality now present Incomplete right bundle-branch block no longer present Electronically Signed On 01-09-2020 8:33:05 CDT by Helder Brown [email or web address] <ELECTRONICALLY SIGNED> By: Helder Brown MD, FAC 01/09/20 0833 1338 1338 Helder Brown MD, [facility] /EPI
== END 2020-01-07 13:55 | disposition home or self-care (01) ==
LOC: M.ERS 11:42
PROVIDERS: Family Medicine
DX: N39.0 Urinary tract infection, site not specified (principal); R53.1 Weakness; I10 Essential (primary) hypertension; E11.9 Type 2 diabetes mellitus without complications; Z88.5 Allergy status to narcotic agent; Z88.6 Allergy status to analgesic agent; Z90.49 Acquired absence of other specified parts of digestive tract; Z87.442 Personal history of urinary calculi; Z87.01 Personal history of pneumonia (recurrent)

== ENCOUNTER → 2020-01-29 | Outpatient (CLI) | payer MEDICARE, BC ==
[2020-01-29 13:46] LABS: CREATININE 0.8 mg/dL (0.6-1.3)
== END ==
LOC: M.LAB 13:00 → M.CT 14:00
PROVIDERS: ATTEND Surgery Vascular Surgery
DX: I71.4 Abdominal aortic aneurysm, without rupture (principal); I72.4 Aneurysm of artery of lower extremity; I74.3 Embolism and thrombosis of arteries of the lower extremities

== ENCOUNTER 2020-10-06 12:00 | Emergency (ER) | payer MEDICARE, BC ==
[~2020-10-06] VITALS: Ht 185.4 cm; Wt 90.7 kg
[2020-10-06 12:54] LABS: ABSOLUTE EOSINOPHILS 0.1 thou/uL (0.0-0.7); ABSOLUTE LYMPHOCYTES 1.1 thou/uL (0.8-5.3); ABSOLUTE MONOCYTES 0.4 thou/uL (0.0-1.2); BASOPHILS 0.4 %; EOSINOPHILS 2.6 %; HEMATOCRIT 35.9 % (42.0-52.0); HEMOGLOBIN 11.9 gm/dL (14.0-18.0); LYMPHOCYTES 19.1 %; MCH 29.2 pg (26.0-34.0); MCHC 33.2 g/dL (28.0-37.0); MCV 88.1 fL (80.0-100.0); MONOCYTES 7.5 %; MPV 7.7 fl. (7.2-11.1); NUCLEATED RBCS 0 /100WBC; PLATELET COUNT* 123 thou/uL (150-400); POLYS 70.4 %; RBC 4.08 mil/uL (4.50-6.00); RDW-CV 15.5 % (10.5-14.5); WBC 5.7 thou/uL (4.0-11.0)
[2020-10-06 13:14] LABS: CALCIUM 8.7 mg/dL (8.5-10.1); CREATININE 0.8 mg/dL (0.6-1.3); POTASSIUM 4.4 mmol/L (3.5-5.1)
[2020-10-06 13:19] LABS: TOTAL BILIRUBIN 0.5 mg/dL (<0.1-1.0); TOTAL PROTEIN 6.4 g/dL (6.4-8.2)
[2020-10-06] MEDS ORDERED: PERCOCET 5-3251 EACH PO (15:20)
[2020-10-06 15:52] VITALS: BP 138/78
== END 2020-10-06 15:53 | disposition home or self-care (01) ==
LOC: M.ERS 12:00
PROVIDERS: Family Medicine
DX: I73.9 Peripheral vascular disease, unspecified (principal); I10 Essential (primary) hypertension; E11.9 Type 2 diabetes mellitus without complications; Z88.1 Allergy status to other antibiotic agents; Z88.6 Allergy status to analgesic agent; Z88.5 Allergy status to narcotic agent; Z87.01 Personal history of pneumonia (recurrent); Z87.442 Personal history of urinary calculi; Z90.49 Acquired absence of other specified parts of digestive tract

== ENCOUNTER 2021-03-18 17:29 | Inpatient (IN) | payer MEDICARE, BC ==
[~2021-03-18] VITALS: Ht 177.8 cm; Wt 86.2 kg
[2021-03-18 17:33] VITALS: BP 160/77
[2021-03-18 18:13] LABS: ABSOLUTE EOSINOPHILS 0.2 thou/uL (0.0-0.7); ABSOLUTE LYMPHOCYTES 1.2 thou/uL (0.8-5.3); ABSOLUTE MONOCYTES 0.3 thou/uL (0.0-1.2); ABSOLUTE NEUTROPHILS 2.4 thou/uL (1.6-8.1); BASOPHILS 1.2 %; EOSINOPHILS 4.7 %; HEMATOCRIT 41.2 % (42.0-52.0); HEMOGLOBIN 13.7 gm/dL (14.0-18.0); LYMPHOCYTES 29.7 %; MCH 30.5 pg (26.0-34.0); MCHC 33.4 g/dL (28.0-37.0); MCV 91.3 fL (80.0-100.0); MONOCYTES 7.1 %; MPV 7.4 fl. (7.2-11.1); NUCLEATED RBCS 0 /100WBC; PLATELET COUNT* 176 thou/uL (150-400); POLYS 57.3 %; RBC 4.51 mil/uL (4.50-6.00); RDW-CV 16.3 % (10.5-14.5); WBC 4.1 thou/uL (4.0-11.0)
[2021-03-18 18:24] LABS: CALCIUM 8.6 mg/dL (8.5-10.1); CREATININE 1.1 mg/dL (0.6-1.3); POTASSIUM 3.7 mmol/L (3.5-5.1)
[2021-03-18 18:29] LABS: ALBUMIN 3.7 g/dL (3.4-5.0); TOTAL BILIRUBIN 0.5 mg/dL (<0.1-1.0); TOTAL PROTEIN 7.1 g/dL (6.4-8.2)
[2021-03-18 18:37] LABS: ACETAMINOPHEN 7 ug/mL (10-30); SALICYLATE < 2.8 mg/dL (2.8-20.0)
[2021-03-18 18:38] LABS: ALCOHOL < 10 mg/dL (<10)
--- NOTE | 2021-03-18 18:42 | NUR ---
, ANANTH PINEDA USING [employer] PHONE [phone]. TRYING TO GET IN [place] LONG TERM. 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
[2021-03-18 21:35] LABS: URINE BILIRUBIN NEGATIVE (Negative); URINE BLOOD 3+ (Negative); URINE CLARITY CLEAR; URINE COLOR YELLOW; URINE GLUCOSE-RANDOM NEGATIVE (Negative); URINE KETONES NEGATIVE (Negative); URINE LEUKOCYTES-REFLEX NEGATIVE (Negative); URINE NITRITE-REFLEX NEGATIVE (Negative); URINE PROTEIN NEGATIVE (Negative); URINE SPECIFIC GRAVITY >= 1.030 (1.005-1.030); URINE UROBILINOGEN 0.2 E.U./dl (0.2-1.0)
[2021-03-18 21:41] LABS: BACTERIA-REFLEX 1-9 Few /HPF (None Seen); HYALINE CASTS 0-3 Few /LPF (None Seen); MUCUS None Seen strn/LPF (None Seen); SQUAMOUS 4-10 Moderate /LPF (0-3)
[2021-03-18 21:41] LABS: AMP/METHAMP Negative (Negative); BARBITURATES Negative (Negative); BENZODIAZEPINES POSITIVE (Negative); COCAINE Negative (Negative); METHADONE Negative (Negative); OPIATES POSITIVE (Negative); PCP Negative (Negative); THC Negative (Negative)
[2021-03-18 21:42] LABS: CRYSTALS None Seen /LPF (None Seen); URINE WBC-REFLEX None Seen /HPF (0-5)
[2021-03-18 23:41] VITALS: BP 165/75
--- NOTE | 2021-03-19 00:49 | NUR ---
PATIENT UP FROM ER VIA CART TO ROOM 202. PT ABLE TO ANSWER LOCATION, YEAR, PRESIDENT, NAME/DATE OF AND QUESTIONS APPROPRIATELY HOWEVER WHEN ASKED ABOUT A DPOA OR ADVANCE DIRECTIVE PT BEGAN TALKING ABOUT HE FEELS HE IS BEING CUT OUT OF ALL DECISION MAKING AT HOME INCLUDING HIS FINANCES. EMS REPORTS THEY KNOW PT FROM PREVIOUS CALLS AND HE HAS DEMENTIA. REPORT FROM TITLE INVESTIGATOR SAID FAMILY WANTS PLACEMENT FOR HIM HE HAS BECOME MEAN. PT POOR HISTORIAN AT TIMES AND CONFUSED. ATIVAN GIVEN IN ER AND PT DROWSY AND ENCOURAGED TO SLEEP. FREQUENLY USED ITEMS AND CALL LIGHT WITHIN REACH. SIDERAILS UPX4 PER PT REQUEST AND BED ALARM ON. WILL CONTINUE TO MONITOR.
[2021-03-19 01:36] VITALS: BP 177/84
--- NOTE | 2021-03-19 04:46 | NUR ---
PATIENT SLEPT WELL AFTER ADMISSION COMPLETED. PT WOKE AND REQUESTED A NEW REMOTE FOR HIS TV. REMOTE PROVIDED. PT ABLE TO USE CALL LIGHT AND REMOTE PROPERLY. PT VOIDS YELLOW URINE PER URINAL. PT IS PLEASANT, COOPERATIVE. WILL CONTINUE TO MONITOR.
[2021-03-19 07:25] VITALS: BP 163/82
--- NOTE | 2021-03-19 15:36 | NUR ---
CM spoke with via phone. Pt admitted for bx disturbances at home. Per , Pt is wc bound for the past few weeks. Refuses to take medications and to eat. Can be aggressive by throwing things. Police have been called 8-9 times over the past 2 weeks. Pt has a caregiver that comes in every day to help with Pt. 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 Pt has been increasingly agitated and mean over the past month. No o2. has an appt with an attorney lawyer tomorrow to try to get Pt on [place], plan shelter placement for Pt. is DPOA, copy on chart. Per sumeet [facility] dc, tele psych consulted. CM following
[2021-03-19 16:00] VITALS: BP 162/87
--- NOTE | 2021-03-19 17:12 | NUR ---
PT REMAINED ALERT AND ORIENTED. PT UP TO CHAIR. FALL RISK PRECAUTIONS IN PLACE. HOURLY ROUNDING COMPLETED. CALL LIGHT WITHIN REACH.
[2021-03-19 20:00] VITALS: BP 158/85
--- NOTE | 2021-03-20 05:32 | NUR ---
PATIENT SLEPT MOST OF THE NIGHT. IV REMAINS SALINE LOCKED. PATIENT HAD NO COMPLAINTS. WILL CONTINUE TO MONITOR.
[2021-03-20 08:00] VITALS: BP 135/70
[2021-03-20 16:00] VITALS: BP 151/77
[2021-03-20 20:00] VITALS: BP 155/79
[2021-03-21] VITALS: BP 151/84
--- NOTE | 2021-03-21 05:45 | NUR ---
PATIENT SLEPT MOST OF THE NIGHT. IV REMAINS SALINE LOCKED. PATIENT WAS GIVEN PAIN MEDICINE ONCE THIS SHIFT. PATIENT HAS REMAINED PLEASANT. WILL CONTINUE TO MONITOR.
[2021-03-21 08:08] VITALS: BP 153/95
[2021-03-21 16:00] VITALS: BP 150/69
--- NOTE | 2021-03-21 18:27 | NUR ---
PATIENT HAS REMAINED A&OX4, PLEASANT AND COOPERATIVE WITH CARES THIS SHIFT. MEDICATIONS ADMINISTERD ORDERED. BED ALARM ON FOR PATIENT SAFETY. CALL LIGHT AND FREQUENTLY USED ITEMS WITHIN REACH.
[2021-03-21 20:00] VITALS: BP 165/84
[2021-03-22 04:25] LABS: HEMOGLOBIN 12.2 gm/dL (14.0-18.0); MCH 30.9 pg (26.0-34.0); MCHC 33.9 g/dL (28.0-37.0); MCV 91.1 fL (80.0-100.0); MPV 8.3 fl. (7.2-11.1); RBC 3.95 mil/uL (4.50-6.00); RDW-CV 16.4 % (10.5-14.5); WBC 4.9 thou/uL (4.0-11.0)
[2021-03-22 04:47] LABS: ALBUMIN 2.9 g/dL (3.4-5.0); CREATININE 0.8 mg/dL (0.6-1.3); MAGNESIUM 1.7 mg/dL (1.8-2.4); POTASSIUM 3.4 mmol/L (3.5-5.1); TOTAL BILIRUBIN 0.5 mg/dL (<0.1-1.0)
--- NOTE | 2021-03-22 05:28 | NUR ---
PATIENT SLEPT MOST OF THE NIGHT. IV REMAINS SALINE LOCKED. PATIENT WAS GIVEN PAIN MEDICINE ONCE THIS SHIFT. WILL CONTINUE TO MONITOR.
[2021-03-22 09:57] VITALS: BP 130/81
[2021-03-22] MEDS ORDERED: CIPRO500 M1 PO (11:21)
[2021-03-22 13:29] VITALS: BP 130/81
[2021-03-22 15:00] VITALS: BP 130/81
--- NOTE | 2021-03-22 18:22 | NUR ---
PT DISCHARGED AT 1820 BY WHEEL CHAIR VAN TO HOME WITH HH. IV OUT. PERSONAL BELONGINGS SENT WITH PT. [facility] ACCEPTED FOR HH. NOTIFED. [employer] SCRIPT CALLED INTO [facility] ON [address]. PT STABLE UPON DISCHARGE
== END 2021-03-22 18:26 | disposition home health service (06) | DRG 689 ==
LOC: M.ERS 17:29 → M.2W 21:06 → M.TBA-ER 21:06 → M.2W 23:43
PROVIDERS: Emergency Medicine Emergency Medical Services; Internal Medicine; ADMIT Family Medicine; ATTEND Family Medicine
DX: N39.0 Urinary tract infection, site not specified (principal); G92 Toxic encephalopathy; F02.81 Dementia in other diseases classified elsewhere, unspecified severity, with behavioral disturbance; I10 Essential (primary) hypertension; E11.9 Type 2 diabetes mellitus without complications; G30.9 Alzheimer's disease, unspecified; Z20.822 Contact with and (suspected) exposure to COVID-19; Z90.49 Acquired absence of other specified parts of digestive tract; Z98.41 Cataract extraction status, right eye; Z87.442 Personal history of urinary calculi; Z89.611 Acquired absence of right leg above knee; Z88.6 Allergy status to analgesic agent; Z88.8 Allergy status to other drugs, medicaments and biological substances; Z87.891 Personal history of nicotine dependence; Z79.899 Other long term (current) drug therapy

== ENCOUNTER 2021-03-30 10:21 | Emergency (ER) | payer MEDICARE, BC ==
[~2021-03-30] VITALS: Ht 182.9 cm; Wt 90.7 kg
[~2021-03-30 10:21] MED LIST changes: +CIPRO500 M1 PO
[2021-03-30 12:18] LABS: URINE BILIRUBIN NEGATIVE (Negative); URINE BLOOD NEGATIVE (Negative); URINE CLARITY CLEAR; URINE COLOR YELLOW; URINE GLUCOSE-RANDOM 3+ (Negative); URINE KETONES NEGATIVE (Negative); URINE LEUKOCYTES-REFLEX NEGATIVE (Negative); URINE NITRITE-REFLEX NEGATIVE (Negative); URINE PROTEIN NEGATIVE (Negative); URINE UROBILINOGEN 0.2 E.U./dl (0.2-1.0)
[2021-03-30 12:51] LABS: ABSOLUTE BASOPHILS 0.1 thou/uL (0.0-0.2); ABSOLUTE EOSINOPHILS 0.2 thou/uL (0.0-0.7); ABSOLUTE LYMPHOCYTES 0.9 thou/uL (0.8-5.3); ABSOLUTE MONOCYTES 0.4 thou/uL (0.0-1.2); ABSOLUTE NEUTROPHILS 4.3 thou/uL (1.6-8.1); BASOPHILS 1.3 %; EOSINOPHILS 2.9 %; HEMATOCRIT 38.7 % (42.0-52.0); LYMPHOCYTES 15.9 %; MCH 31.2 pg (26.0-34.0); MCHC 33.7 g/dL (28.0-37.0); MCV 92.8 fL (80.0-100.0); NUCLEATED RBCS 0 /100WBC; PLATELET COUNT* 166 thou/uL (150-400); POLYS 72.9 %; RBC 4.16 mil/uL (4.50-6.00); RDW-CV 16.4 % (10.5-14.5); WBC 5.9 thou/uL (4.0-11.0)
[2021-03-30 13:02] LABS: CALCIUM 8.4 mg/dL (8.5-10.1); POTASSIUM 4.4 mmol/L (3.5-5.1)
[2021-03-30 13:07] LABS: ALBUMIN 3.3 g/dL (3.4-5.0); TOTAL BILIRUBIN 0.4 mg/dL (<0.1-1.0); TOTAL PROTEIN 6.7 g/dL (6.4-8.2)
--- NOTE | 2021-03-30 13:38 | EKG ---
[place] [address] ELECTROCARDIOGRAM REPORT Name: APURVA PINEDA Room: [facility]#: [id number] Admission: 03/30/21 Attend Phys: Discharge: Date of : 43 Date of Service: 03/30/21 1252 Report #: [id number] THIS REPORT FOR: //name// [facility] ED Test Date: 2021-03-30 Test Time: 12:52:38 Pat Name: APURVA PINEDA Department: Room: Gender: Gasket Former: [facility] : 1945 Requested By: Mahsa Can Order Number: [id number] MD: You Humphrey Measurements Intervals [place] Rate: 69 P: 12 [place]: 170 QRS: -30 QRSD: 105 T: 52 QT: 400 QTc: 429 Interpretive Statements Sinus rhythm Multiform ventricular premature complexes Incomplete RBBB and LAFB Abnormal R-wave progression, late transition Baseline wander in lead(s) II,aVR Compared to ECG 01/07/2020 13:38:11 Ventricular premature complex(es) now present Incomplete right bundle-branch block now present Atrial premature complex(es) no longer present T-wave abnormality no longer present Electronically Signed On 03-30-2021 13:38:37 CDT by You Humphrey [email or web address] <ELECTRONICALLY SIGNED> By: You Humphrey MD, [facility] 03/30/21 1338 1252 1252 You Humphrey MD, [facility] /EPI
[2021-03-30 15:21] VITALS: BP 134/72
== END 2021-03-30 15:22 | disposition home or self-care (01) ==
LOC: M.ERS 10:21
PROVIDERS: Nurse Practitioner Family
DX: R10.11 Right upper quadrant pain (principal); E11.40 Type 2 diabetes mellitus with diabetic neuropathy, unspecified; R07.89 Other chest pain; Z98.890 Other specified postprocedural states; I10 Essential (primary) hypertension; Z90.49 Acquired absence of other specified parts of digestive tract; Z87.442 Personal history of urinary calculi; Z79.899 Other long term (current) drug therapy; Z88.8 Allergy status to other drugs, medicaments and biological substances; Z88.1 Allergy status to other antibiotic agents; Z88.5 Allergy status to narcotic agent

== ENCOUNTER 2021-08-13 10:57 | Emergency (ER) | payer MEDICARE, BC ==
[~2021-08-13] VITALS: Ht 185.4 cm; Wt 77.1 kg
[2021-08-13] MEDS ORDERED: GLIMEPIRIDE4 MG PO (11:42)
[2021-08-13] MEDS ORDERED: FUROSEMIDE 40 M40 MG PO (11:43)
[2021-08-13] MEDS ORDERED: PERCOCET 10-321 EAC1 PO (11:43)
[2021-08-13 12:48] LABS: URINE BILIRUBIN NEGATIVE (Negative); URINE BLOOD 2+ (Negative); URINE CLARITY SL CLOUDY; URINE COLOR YELLOW; URINE GLUCOSE-RANDOM 2+ (Negative); URINE KETONES NEGATIVE (Negative); URINE LEUKOCYTES-REFLEX 1+ (Negative); URINE NITRITE-REFLEX NEGATIVE (Negative); URINE PROTEIN NEGATIVE (Negative); URINE SPECIFIC GRAVITY 1.025 (1.005-1.030)
[2021-08-13 13:08] LABS: BACTERIA-REFLEX >30 Many /HPF (None Seen); CASTS None Seen /LPF (None Seen); CRYSTALS None Seen /LPF (None Seen); MUCUS None Seen strn/LPF (None Seen); SQUAMOUS >10 Many /LPF (0-3); URINE WBC-REFLEX >25 Many /HPF (0-5)
[2021-08-13] MEDS ORDERED: CEPHALEXIN500 MG PO (13:14)
[2021-08-13 13:42] VITALS: BP 146/72
== END 2021-08-13 13:55 | disposition home or self-care (01) ==
LOC: M.ERS 10:57
PROVIDERS: Emergency Medicine Emergency Medical Services
DX: N39.0 Urinary tract infection, site not specified (principal); I10 Essential (primary) hypertension; E11.9 Type 2 diabetes mellitus without complications; Z98.890 Other specified postprocedural states; Z90.89 Acquired absence of other organs; Z87.442 Personal history of urinary calculi; Z79.84 Long term (current) use of oral hypoglycemic drugs; Z79.899 Other long term (current) drug therapy; Z79.891 Long term (current) use of opiate analgesic; Z88.5 Allergy status to narcotic agent; Z88.8 Allergy status to other drugs, medicaments and biological substances; Z88.6 Allergy status to analgesic agent